=== PATIENT | female | born 1960 | race African-American/Black ===

== ENCOUNTER 2016-09-15 08:39 | Emergency (ER) | payer SELFPAY ==
[2016-09-15] MEDS ORDERED: ASPIRIN 81 MG TABLET, CHEWABLE PO ONE (08:52)
[2016-09-15 09:48] LABS: ABSOLUTE BASOPHILS # (AUTO) 0.1 10^3/uL (0.0-0.2); ABSOLUTE EOSINOPHILS # (AUTO) 0.2 10^3/uL (0.0-0.6); ABSOLUTE LYMPHOCYTES (AUTO) 1.7 10^3/uL (0.5-4.7); ABSOLUTE MONOCYTES (AUTO) 0.4 10^3/uL (0.1-1.4); ABSOLUTE NEUT (AUTO) 4.6 10^3/uL (1.7-8.2); BASOPHILS % (AUTO) 0.8 % (0-2); EOSINOPHILS % (AUTO) 3.5 % (0-6); HEMATOCRIT 41.7 % (36.0-47.0); HEMOGLOBIN 13.9 g/dL (12.0-15.5); MEAN CORPUSCULAR HEMOGLOBIN 27.7 pg (27.0-33.4); MEAN CORPUSCULAR HGB CONC 33.4 g/dL (32.0-36.0); MEAN CORPUSCULAR VOLUME 83 fl (80-97); MONOCYTES % (AUTO) 5.1 % (3-13); RED BLOOD COUNT 5.03 10^6/uL (3.72-5.28); RED CELL DISTRIBUTION WIDTH 15.7 % (11.5-14.0); SEGMENTED NEUTROPHILS % (AUTO) 66.6 % (42-78); WHITE BLOOD COUNT 6.9 10^3/uL (4.0-10.5)
--- NOTE | 2016-09-15 10:02 | ER Document Report ---
ED Cardiac - General Chief Complaint: Chest Pain Stated Complaint: CHEST PAIN Notes: The patient is a 55-year-old female, past medical history diabetes, hypertension , hyperlipidemia, presents with 2 days of left-sided sternal pain, worse when she palpates the area. She has had this in the past and was diagnosed with chest wall pain after a negative stress test. She took a baby aspirin yesterday and used heating pads with some relief of her symptoms. She denies nausea, vomiting, numbness, tingling, shortness of breath, cough, fevers, rash, back pain, leg swelling or recent heavy lifting. TRAVEL OUTSIDE OF THE [place] IN LAST 30 DAYS: No - Related Data Allergies/Adverse Reactions: No Known Allergies Allergy (Unverified 09/15/16 08:49) Past Medical History - General Information source: Patient - Social History Smoking Status: Never Smoker Chew tobacco use (# tins/day): No Frequency of alcohol use: None Drug Abuse: None Family History: Arthritis, CAD, CVA, DM, Hyperlipidemia, Hypertension, Malignancy Patient has suicidal ideation: No Patient has homicidal ideation: No - Past Medical History Cardiac Medical History: Reports: Hx Hypercholesterolemia, Hx Hypertension Endocrine Medical History: Reports: Hx Diabetes Mellitus Type 2 Past Surgical History: Reports: Hx Section Review of Systems - Review of Systems Notes: REVIEW OF SYSTEMS: CONSTITUTIONAL: Denies fever, chills, or sweats. Denies recent illness. EENT: Denies eye, ear, throat, or mouth pain or symptoms. Denies nasal or sinus congestion. CARDIOVASCULAR: +chest pain. Denies syncope. RESPIRATORY: Denies cough, cold, or chest congestion. Denies shortness of breath, difficulty breathing, or wheezing. GASTROINTESTINAL: Denies abdominal pain. Denies nausea, vomiting, or diarrhea. Denies constipation. GENITOURINARY: Denies difficulty urinating, painful urination, burning, frequency, or blood in urine. MUSCULOSKELETAL: Denies neck or back pain or joint pain or swelling. SKIN: Denies rash or skin lesions. HEMATOLOGIC: Denies easy bruising or bleeding. LYMPHATIC: Denies swollen, enlarged glands. NEUROLOGICAL: Denies altered mental status or loss of consciousness. Denies headache. Denies weakness or paralysis or loss of use of either side. Denies problems with gait or speech. Denies sensory or motor loss. PSYCHIATRIC: Denies anxiety or stress or depression. ALL OTHER SYSTEMS REVIEWED AND NEGATIVE. Physical Exam - Vital signs Vitals: Resp 19 09/15/16 09:34 - Notes Notes: PHYSICAL EXAMINATION: GENERAL: Well-appearing, well-nourished and in no acute distress. HEAD: Atraumatic, normocephalic. EYES: Pupils equal round and reactive to light, extraocular movements intact, sclera anicteric, conjunctiva are normal. ENT: nares patent, oropharynx clear without exudates. Moist mucous membranes. NECK: Normal range of motion, supple without lymphadenopathy LUNGS: Breath sounds clear to auscultation bilaterally and equal. No wheezes rales or rhonchi. HEART: Regular rate and rhythm without murmurs. Tender over left anterior sternocostal border (ribs 6-7). ABDOMEN: Soft, nontender, normoactive bowel sounds. No guarding, no rebound. No masses appreciated. EXTREMITIES: Normal range of motion, no pitting or edema. No cyanosis. NEUROLOGICAL: Cranial nerves grossly intact. Normal speech, normal gait. Normal sensory, motor, and reflex exams. PSYCH: Normal mood, normal affect. SKIN: Warm, Dry, normal turgor, no rashes or lesions noted. Course - Re-evaluation Re-evalutation: Pt's HEART score is 3. Symptoms atypical for PE and aortic dissection at this time. Since patient's pain is ongoing for 2 days, will only need 1 set of troponins. Pain is reproducible on palpation. Will have her follow-up with the security sales manager for further evaluation of her chest pain, including stress test. - Vital Signs Vital signs: Temp Pulse Resp BP Pulse Ox 18 122/66 95 09/15/16 10:01 09/15/16 10:01 09/15/16 10:01 - Laboratory Result Diagrams: 09/15/16 09:33 09/15/16 09:33 Laboratory results interpreted by me: 09/15/16 09/15/16 09:33 09:33 RDW 15.7 H Sodium 145.7 H Potassium 3.4 L Carbon Dioxide 31 H Est GFR (Non-Af Amer) 58 L - Diagnostic Test Radiology reviewed: Image reviewed, Reports reviewed - EKG Interpretation by Me EKG shows normal: Sinus rhythm, Intervals, QRS Complexes, ST-T Waves Ruffin/QRS: Left axis deviation Discharge - Discharge Clinical Impression: Chest pain Qualifiers: Chest pain type: unspecified Qualified Code(s): R07.9 - Chest pain, unspecified Condition: Good Disposition: HOME, SELF-CARE Additional Instructions: He must follow-up with your primary care physician and security sales manager in 1-2 days for further evaluation of your chest pain. CHEST PAIN OF UNCLEAR CAUSE: The exact cause of your chest pain isn't clear. Fortunately, there is no evidence of a dangerous medical condition. Further testing may be required to find the source of the pain. Most often, we find that this pain is coming from the chest wall -- the muscles or rib joints in the chest. But chest pain can come from the lung and lung lining, the esophagus, the heart valves or heart lining, and even the stomach or gallbladder. Rest. Eat lightly until the pain is gone. We may prescribe medicine for pain and inflammation. You should call the physician immediately if the pain radiates to the shoulder, jaw or arms; if you start to run a fever or develop a cough; or if you develop shortness of breath, or other new or alarming symptoms. NORMAL EXAM AND WORKUP: At this time, your examination and workup show no significant abnormality. No significant abnormal physical findings were noted. All laboratory, EKG, and imaging (x-ray, CT scans, ultrasound) studies that were ordered show no significant abnormality. Although your examination and all studies that were ordered showed no significant abnormal finding, there are no examinations and no studies that are 100% accurate. There is always the possibility that some abnormality could exist and not be detected with physical examination or within the limits and capabilities of laboratory and other studies. You should return or follow up as you were instructed on your visit today for further evaluation if your symptoms do not resolve. CHEST WALL PAIN: Your chest pain may be coming from the chest wall. This is often caused by straining the muscles or joints in the chest during physical activity, direct trauma, coughing, or vigorous vomiting. Persons with arthritis are especially prone to this type of pain, due to inflammation of the cartilage joints near the breast bone. Occasionally, no cause can be found. Rest from strenuous physical activity. This kind of chest pain is usually made worse by movement of the chest. Depending on the symptoms, we may prescribe medicine for pain, muscle relaxation, and antiinflammatory effects. If the pain is new, and seems to be due to muscle strain, cold packs can help. Otherwise, apply gentle warmth to the painful area for 15 minutes every hour or two. You should call contact the doctor immediately if things change. Further evaluation is needed if you develop a fever or cough, if the nature of the pain changes, or if you become short of breath. ASPIRIN: Aspirin has been shown to have a beneficial effect on blood circulation by reducing the clotting effect of platelets in the blood. These beneficial effects can be achieved by taking just a single baby (81 mg) aspirin a day. It is recommended that any person over the age of forty take a single baby aspirin every day for heart and brain circulation, unless you are allergic to aspirin or have some significant bleeding disorder. It is strongly recommended that people who have proven cardiac or blood circulation disturbances should take a baby aspirin every day. FOLLOW-UP CARE: If you have been referred to a physician for follow-up care, call the physician s office for an appointment as you were instructed or within the next two days. If you experience worsening or a significant change in your symptoms, notify the physician immediately or return to the Emergency Department at any time for re-evaluation. Forms: Elevated Blood Pressure Referrals: [facility] [Primary Care Provider] - Follow up as needed
[2016-09-15 10:10] LABS: ALANINE AMINOTRANSFERASE 38 U/L (9-52); ALBUMIN 4.4 g/dL (3.5-5.0); ALKALINE PHOSPHATASE 81 U/L (38-126); ANION GAP 12 (5-19); ASPARTATE AMINO TRANSFERASE 27 U/L (14-36); BILIRUBIN,TOTAL 0.4 mg/dL (0.2-1.3); BLOOD UREA NITROGEN 16 mg/dL (7-20); CALCIUM 9.6 mg/dL (8.4-10.2); CARBON DIOXIDE 31 mmol/L (22-30); CHLORIDE 103 mmol/L (98-107); CREATINE KINASE 109 U/L (30-135); CREATININE RESULT 0.99 mg/dL (0.52-1.25); GLUCOSE 85 mg/dL (75-110); POTASSIUM 3.4 mmol/L (3.6-5.0); SODIUM 145.7 mmol/L (137-145); TOTAL PROTEIN 7.7 g/dL (6.3-8.2)
[2016-09-15 10:20] LABS: CREATINE KINASE MB 0.68 ng/mL (<4.55)
--- NOTE | 2016-09-15 10:20 | EKG REPORT ---
SEVERITY:- ABNORMAL ECG - SINUS RHYTHM LEFT AXIS DEVIATION LEFT VENTRICULAR HYPERTROPHY : Confirmed by: Casper Del Castillo 15-Sep-2016 10:19:10
[2016-09-15 10:22] LABS: TROPONIN I < 0.012 ng/mL
[2016-09-15] MEDS ORDERED: POTASSIUM CHLORIDE 10 MEQ TABLET.SA PO ONE (10:34)
[2016-09-15 11:11] VITALS: BP 120/77
== END 2016-09-15 11:11 | disposition home or self-care (01) ==
LOC: ER 08:39
DX: R07.9 Chest pain, unspecified (principal); E11.9 Type 2 diabetes mellitus without complications; I10 Essential (primary) hypertension; Z82.49 Family history of ischemic heart disease and other diseases of the circulatory system
CPT/HCPCS: 36415; 71010; 80053; 82550; 82553; 84484; 85025; 93005; 93010; 99285

== ENCOUNTER → 2016-09-20 | Outpatient (CLI) | payer OTHER | LOC: OD 11:43 | DX: E11.9 Type 2 diabetes mellitus without complications (principal) | CPT/HCPCS: 36415; 83036 ==

== ENCOUNTER 2017-01-04 15:07 | Emergency (ER) | payer SELFPAY ==
[2017-01-04] MEDS ORDERED: KETOROLAC TROMETHAMINE 60 MG/2 ML SDV IM ONE (16:00)
--- NOTE | 2017-01-04 16:06 | ER Document Report ---
ED Neck/Back Problem - General Chief Complaint: Back Pain Stated Complaint: BACK PAIN Mode of Arrival: Ambulatory Information source: Patient TRAVEL OUTSIDE OF THE [place] IN LAST 30 DAYS: No - HPI Patient complains to provider of: Pain Onset: Last week Notes: Patient arrives with complaints of low back pain and intermittent headaches. Patient states that she was bringing her mother here to be evaluated and thought she would be evaluated as well since her back was hurting her. She has a history of intermittent low back pain. She had x-rays in 2016 showing degenerative changes of the lumbar spine. She states the last few days been having increasing low back pain radiating down the left leg. She denies any traumatic injuries or falls. She is on no blood thinners per [place] denies fevers. She denies any bowel or bladder dysfunction. She denies IV drug use. She has a history of diabetes. Pain is worse with movement specifically when she moves her left leg. States that she been having intermittent headaches for the last week or so. She denies any significant headache at this time. Again she denies any numbness, tingling, weakness, blurred or loss vision. No fevers. No neck. - Related Data Allergies/Adverse Reactions: No Known Allergies Allergy (Verified 01/04/17 15:22) Past Medical History - Social History Smoking Status: Unknown if Ever Smoked Family History: Arthritis, CAD, CVA, DM, Hyperlipidemia, Hypertension, Malignancy Patient has suicidal ideation: No Patient has homicidal ideation: No - Past Medical History Cardiac Medical History: Reports: Hx Hypercholesterolemia, Hx Hypertension Endocrine Medical History: Reports: Hx Diabetes Mellitus Type 2 Renal/ Medical History: Denies: Hx Peritoneal Dialysis Past Surgical History: Reports: Hx Section Review of Systems - Review of Systems -: Yes All other systems reviewed and negative Physical Exam - Vital signs Vitals: Temp Pulse Resp BP Pulse Ox 98.4 F 93 16 155/79 H 97 01/04/17 15:22 01/04/17 15:22 01/04/17 15:22 01/04/17 15:22 01/04/17 15:22 - Notes Notes: GENERAL: alert, cooperative, nontoxic, no distress. HEAD: normocephalic, atraumatic EYES: conjunctiva pink without discharge, no external redness or swelling. EARS: no external swelling, no external redness NOSE: atraumatic, no external swelling MOUTH/THROAT: mucous membranes moist and pink, posterior pharynx without erythema, swelling, exudate. No trismus or drooling. NECK: soft, supple, full range of motion, no meningismus. CHEST: no distress, lungs clear and equal throughout. No wheezing, rales, rhonchi. CARDIAC: regular rate and rhythm, no murmur, normal capillary refill, normal pulses. No peripheral edema noted. ABDOMEN: soft, nontender, no pusatile mass. BACK: Mild tenderness to palpation to the left sciatic notch. No midline tenderness to posterior crepitus to palpation of the lumbar spine. No rash. EXTREMITIES: full range of motion of all extremities. No redness, no swelling. NEURO: alert and oriented 3, no focal deficits, full range of motion of all extremities. 5 out of 5 flexion and extension of the lower extremities bilaterally. Patellar and Achilles deep tendon reflexes are +2 bilaterally. Normal sensation with no saddle anesthesia. PYSCH: appropriate mood, affect. Patient is cooperative. SKIN: pink, warm, dry, no rash. Course - Re-evaluation Re-evalutation: 01/04/17 16:03 Patient is nontoxic. Stable vitals. She's had nontraumatic low back pain rating down the left leg consistent with sciatica. She's had x-rays in the past showing degenerative changes of the lumbar spine. She has no abdominal complaints. She's had intermittent headaches for the last week, but denies any significant headache currently. She has a completely benign exam with no signs of cauda equina or epidural abscess or bleed. The patient will be given a shot of Toradol here in the emergency department. Due to her history of diabetes, I will place her on an NSAID as well as some tramadol to help with her pain in hopes of decreasing inflammation and improving her sciatica symptoms. She was instructed to follow-up with her primary care doctor at the next available appointment for reevaluation. She should follow-up sooner for increased pain, fever, difficulty controlling her bowels or bladder, or for any further concerns. The patient is noted to have elevated blood pressure during today's emergency department visit. The patient was informed of this finding. The patient was instructed that this may be related to pre-hypertension and requires further evaluation with a primary care provider. The patient has no hypertensive symptoms at this time. The patient's emergency department workup and current diagnosis were explained to the patient and or family. Follow-up instructions were provided. Medications if prescribed were discussed. Instructions for when to return to the emergency department including specific worrisome symptoms were discussed with the patient and/or family. - Vital Signs Vital signs: Temp Pulse Resp BP Pulse Ox 98.4 F 93 16 155/79 H 97 01/04/17 15:22 01/04/17 15:22 01/04/17 15:22 01/04/17 15:22 01/04/17 15:22 Discharge - Discharge Clinical Impression: Sciatica Qualifiers: Laterality: left Qualified Code(s): M54.32 - Sciatica, left side Condition: Stable Disposition: HOME, SELF-CARE Instructions: Low Back Pain ([facility]), Sciatica ([facility]) Additional Instructions: Take medications as prescribed. Stay active. Follow-up with your family doctor at the next available appointment for reevaluation. Follow up sooner for increased pain, fever, numbness, tingling, weakness, difficulty controlling her bowels or bladder, or any further concerns. Your blood pressure was elevated during today's visit. Have this rechecked with your doctor. The medication you were prescribed today may cause drowsiness. Do not drive or operate heavy machinery while taking this medication. Prescriptions: Diclofenac Sodium [Voltaren] 75 mg PO BID #20 tablet. Tramadol HCl [Ultram] 50 mg PO TID PRN #10 tablet PRN Reason:
[2017-01-04 16:54] VITALS: BP 152/87
== END 2017-01-04 16:54 | disposition home or self-care (01) ==
LOC: ER 15:07
DX: M54.32 Sciatica, left side (principal); M54.9 Dorsalgia, unspecified; R51 Headache; M54.5 Low back pain; E11.9 Type 2 diabetes mellitus without complications
CPT/HCPCS: 99283; 96372; J1885

== ENCOUNTER → 2017-02-13 | Outpatient (CLI) | payer OTHER ==
--- NOTE | 2017-02-13 13:51 | RADIOLOGY REPORT (SQ) ---
EXAM DESCRIPTION: HIP RIGHT AP/LATERAL COMPLETED DATE/TIME: 02/13/2017 1:10 pm REASON FOR STUDY: RIGHT HIP PAIN (M25.551) M25.551 PAIN IN RIGHT HIP M25.561 PAIN IN RIGHT KNEE COMPARISON: None. NUMBER OF VIEWS: Two views. TECHNIQUE: AP pelvis and additional frog-leg view of the right hip. LIMITATIONS: None. FINDINGS: MINERALIZATION: Normal. RIGHT HIP: No fracture or dislocation. No worrisome bone lesions. LEFT HIP: No fracture or dislocation. No worrisome bone lesions. PUBIS AND ISCHIUM: No fracture. PELVIS: No fracture. SACRUM: No fracture or dislocation. No worrisome bone lesions. LOWER LUMBAR SPINE: No fracture or dislocation. No worrisome bone lesions. No significant disc disea se. SOFT TISSUES: No findings. OTHER: No other significant finding. IMPRESSION: NEGATIVE STUDY OF THE RIGHT HIP. NO RADIOGRAPHIC EVIDENCE OF ACUTE INJURY. TECHNICAL DOCUMENTATION: JOB ID: [id number] [employer]- All Rights Reserved
--- NOTE | 2017-02-13 13:52 | RADIOLOGY REPORT (SQ) ---
EXAM DESCRIPTION: KNEE RIGHT 4 VIEWS COMPLETED DATE/TIME: 02/13/2017 1:10 pm REASON FOR STUDY: RIGHT KNEE PAIN (M25.561) M25.551 PAIN IN RIGHT HIP M25.561 PAIN IN RIGHT KNEE COMPARISON: None. NUMBER OF VIEWS: Four views. TECHNIQUE: AP, lateral, and both oblique radiographic images acquired of the right knee. LIMITATIONS: None. FINDINGS: MINERALIZATION: Normal. BONES: No acute fracture or dislocation. No worrisome bone lesions. JOINT: No effusion. SOFT TISSUES: No soft tissue swelling. No radio-opaque foreign body. OTHER: No other significant finding. IMPRESSION: NEGATIVE STUDY OF THE RIGHT KNEE. NO RADIOGRAPHIC EVIDENCE OF ACUTE INJURY. TECHNICAL DOCUMENTATION: JOB ID: [id number] [employer]- All Rights Reserved
== END ==
LOC: RAD 12:34
DX: M25.551 Pain in right hip (principal); M25.561 Pain in right knee; E11.9 Type 2 diabetes mellitus without complications
CPT/HCPCS: 36415; 83036

== ENCOUNTER → 2017-06-05 | Outpatient (CLI) | payer OTHER ==
--- NOTE | 2017-06-06 09:25 | RADIOLOGY REPORT (SQ) ---
EXAM DESCRIPTION: MRI CERVICAL SPINE WITHOUT COMPLETED DATE/TIME: 06/05/2017 5:48 pm REASON FOR STUDY: NUMBNESS IN RIGHT HAND R20.2 PARESTHESIA OF SKIN COMPARISON: None. TECHNIQUE: Sagittal and Axial imaging includes T1, T2, STIR and gradient echo sequences. LIMITATIONS: None. FINDINGS: ALIGNMENT: Normal. VERTEBRAE: Intact. BONE MARROW: Red marrow conversion, could be seen in anemia or heavy smoking DISCS: Diffuse decreased T2 weighted intervertebral disc signal. No disc space loss of height. HARDWARE: None in the spine. CORD AND BASE OF BRAIN: Normal in size and signal intensity. SOFT TISSUES: No soft tissue masses. C1-C2: No significant spinal stenosis. C2-C3: No significant spinal stenosis or exit foraminal stenosis. C3-C4: Minimal posterior disc bulging. No significant spinal stenosis or exit foraminal stenosis. C4-C5: Mild central and left paracentral posterior disc bulging. No significant spinal stenosis or e xit foraminal stenosis. C5-C6: Mild diffuse posterior disc bulging. No significant spinal stenosis or exit foraminal stenosi s. C6-C7: Minimal posterior disc bulging. No significant spinal stenosis or exit foraminal stenosis. C7-T1: No significant spinal stenosis or exit foraminal stenosis. UPPER THORACIC: Incompletely imaged. No significant spinal stenosis or exit foraminal stenosis. OTHER: No other significant finding. IMPRESSION: Very mild degenerative disc changes. No high-grade central or foraminal encroachment. Decreased vertebral body marrow fat content. Question red marrow conversion as above. TECHNICAL DOCUMENTATION: JOB ID: [id number] [employer]- All Rights Reserved
== END ==
LOC: RAD 17:09
DX: R20.2 Paresthesia of skin (principal)
CPT/HCPCS: 72141

== ENCOUNTER → 2017-06-18 | Outpatient (CLI) | payer OTHER | LOC: CCC 10:20 | DX: E11.8 Type 2 diabetes mellitus with unspecified complications (principal) | CPT/HCPCS: 36415; 83036 ==

== ENCOUNTER 2017-09-20 07:21 | Emergency (ER) | payer OTHER ==
[2017-09-20] MEDS ORDERED: KETOROLAC TROMETHAMINE 60 MG/2 ML SDV IM ONE (08:35)
--- NOTE | 2017-09-20 09:38 | ER Document Report ---
ED Medical Screen (RME) - General Chief Complaint: Foot Pain Stated Complaint: FOOT PAIN Time Seen by Provider: 09/20/17 08:30 TRAVEL OUTSIDE OF THE [place] IN LAST 30 DAYS: No - HPI Notes: This provider performed a quick evaluation of a 56-year-old female with complaints of left foot pain that started approximately 1 day ago. Denies head trauma or change in loc. pain is 5/10,throbbing. unable to bear full weight. nothing makes better, ambulation makes worse. no otc medications tried. pain is progressive and constant. pt has not tried icing or elevating foot. denies any n /t in foot. denies any other area of injury. Denies any chest pain, shortness of breath, nausea, vomiting, diarrhea, blurred vision, double vision, loss of vision, abdominal pain, hematuria, dysuria. I have greeted and performed a rapid initial assessment of this patient. A comprehensive ED assessment and evaluation of the patient, analysis of test results and completion of medical decision making process will be conducted by an additional ED providers. 09/20/17 09:37 09/20/17 09:37 - Related Data Allergies/Adverse Reactions: No Known Allergies Allergy (Verified 09/20/17 07:24) Past Medical History - Social History Frequency of alcohol use: None Drug Abuse: None - Past Medical History Cardiac Medical History: Reports: Hx Hypercholesterolemia, Hx Hypertension Endocrine Medical History: Reports: Hx Diabetes Mellitus Type 2 Renal/ Medical History: Denies: Hx Peritoneal Dialysis Past Surgical History: Reports: Hx Section Physical Exam - Vital signs Vitals: Temp Pulse Resp BP Pulse Ox 97.7 F 68 16 145/79 H 97 09/20/17 07:31 09/20/17 07:31 09/20/17 07:31 09/20/17 07:31 09/20/17 07:31 Course - Vital Signs Vital signs: Temp Pulse Resp BP Pulse Ox 97.7 F 68 16 145/79 H 97 09/20/17 07:31 09/20/17 07:31 09/20/17 07:31 09/20/17 07:31 09/20/17 07:31
--- NOTE | 2017-09-20 10:03 | RADIOLOGY REPORT (SQ) ---
EXAM DESCRIPTION: FOOT LEFT COMPLETE COMPLETED DATE/TIME: 09/20/2017 9:08 am REASON FOR STUDY: left foot pain x 1 day, unsure of trauma. COMPARISON: None. NUMBER OF VIEWS: Three views. TECHNIQUE: AP, lateral and oblique radiographic images acquired of the left foot. LIMITATIONS: None. FINDINGS: MINERALIZATION: Normal. BONES: No acute fracture or dislocation. No worrisome bone lesions. Small plantar and dorsal calcan eal spurs JOINTS: No effusions. SOFT TISSUES: No soft tissue swelling. No foreign body. OTHER: No other significant finding. IMPRESSION: NEGATIVE STUDY OF THE LEFT FOOT. NO RADIOGRAPHIC EVIDENCE OF ACUTE INJURY. TECHNICAL DOCUMENTATION: JOB ID: [id number] [employer]- All Rights Reserved
--- NOTE | 2017-09-20 10:38 | ER Document Report ---
ED Extremity Problem, Lower - General Chief Complaint: Foot Pain Stated Complaint: FOOT PAIN Time Seen by Provider: 09/20/17 08:30 Mode of Arrival: Ambulatory Information source: Patient Notes: 56-year-old female presents to ED for complaint of left foot pain since yesterday when she woke up that patient denies any injuries. TRAVEL OUTSIDE OF THE [place] IN LAST 30 DAYS: No - HPI Location: Foot - Left Occurred: Yesterday Where: Home, Indoors Onset/Duration: Gradual Quality of pain: Sharp - Feels like is tearing apart Severity: Moderate Pain Level: 3 Recent injury: No Associated symptoms: Painful ambulation Exacerbated by: Movement, Walking Relieved by: Nothing - Related Data Allergies/Adverse Reactions: No Known Allergies Allergy (Verified 09/20/17 07:24) Past Medical History - General Information source: Patient - Social History Smoking Status: Never Smoker Cigarette use (# per day): No Chew tobacco use (# tins/day): No Smoking Education Provided: No Frequency of alcohol use: None Drug Abuse: None Lives with: Family Family History: Arthritis, CAD, CVA, DM, Hyperlipidemia, Hypertension, Malignancy. denies: COPD Patient has suicidal ideation: No Patient has homicidal ideation: No - Past Medical History Cardiac Medical History: Reports: Hx Hypercholesterolemia, Hx Hypertension Denies: Hx Atrial Fibrillation, Hx Congestive Heart Failure, Hx Coronary Artery Disease, Hx DVT, Hx Heart Attack, Hx Peripheral Vascular Disease, Hx Pulmonary Embolism, Hx Heart Murmur Pulmonary Medical History: Reports: None EENT Medical History: Reports: None Neurological Medical History: Reports: None Endocrine Medical History: Reports: Hx Diabetes Mellitus Type 2 Renal/ Medical History: Reports: None Malignancy Medical History: Reports: None GI Medical History: Reports: None Musculoskeltal Medical History: Reports Hx Arthritis Skin Medical History: Reports None Psychiatric Medical History: Reports: None Traumatic Medical History: Reports: None Infectious Medical History: Reports: None Past Surgical History: Reports: Hx Section Review of Systems - Review of Systems Constitutional: No symptoms reported EENT: No symptoms reported Cardiovascular: No symptoms reported Respiratory: No symptoms reported Gastrointestinal: No symptoms reported Genitourinary: No symptoms reported Female Genitourinary: No symptoms reported Musculoskeletal: Other - Pain left foot to the small toe side metatarsals Skin: No symptoms reported Hematologic/Lymphatic: No symptoms reported Neurological/Psychological: No symptoms reported -: Yes All other systems reviewed and negative Physical Exam - Vital signs Vitals: Temp Pulse Resp BP Pulse Ox 97.7 F 68 16 145/79 H 97 09/20/17 07:31 09/20/17 07:31 09/20/17 07:31 09/20/17 07:31 09/20/17 07:31 Interpretation: Normal - General General appearance: Appears well, Alert - HEENT Head: Normocephalic, Atraumatic Eyes: Normal Pupils: PERRL - Respiratory Respiratory status: No respiratory distress Chest status: Nontender Breath sounds: Normal Chest palpation: Normal - Cardiovascular Rhythm: Regular Heart sounds: Normal auscultation Murmur: No - Abdominal Inspection: Normal Distension: No distension Bowel sounds: Normal Tenderness: Nontender Organomegaly: No organomegaly - Back Back: Normal, Nontender - Extremities General upper extremity: Normal inspection, Nontender, Normal color, Normal ROM , Normal temperature General lower extremity: Normal inspection, Normal color, Normal weight bearing. No: Julien's sign Foot: Tender, Metatarsal compress. pain - Left, No evidence of FB. No: Abrasion , Deformity, Ecchymosis, Edema - left, Instability, Laceration, Nail injury, Navicular tenderness, Puncture wound, Tender 5th metatarsal, Unable to bear weight - In full ambulation - Neurological Neuro grossly intact: Yes Cognition: Normal Orientation: AAOx4 [place] Coma Scale Eye Opening: Spontaneous [place] Coma Scale Verbal: Oriented [place] Coma Scale Motor: Obeys Commands [place] Coma Scale Total: 15 Speech: Normal Motor strength normal: LUE, RUE, LLE, RLE Sensory: Normal - Psychological Associated symptoms: Normal affect, Normal mood - Skin Skin Temperature: Warm Skin Moisture: Dry Skin Color: Normal Course - Re-evaluation Re-evalutation: 09/20/17 10:42 No acute injuries no broken bones or radiological injuries noted on the x-ray. X-ray discussed with patient and a copy of the x-ray given to patient and discharged home. - Vital Signs Vital signs: Temp Pulse Resp BP Pulse Ox 97.6 F 64 18 135/80 H 96 09/20/17 10:45 09/20/17 10:45 09/20/17 10:45 09/20/17 10:45 09/20/17 10:45 - Diagnostic Test Radiology reviewed: Image reviewed, Reports reviewed Discharge - Discharge Clinical Impression: Foot pain, left HTN (hypertension) Qualifiers: Hypertension type: unspecified Qualified Code(s): I10 - Essential (primary) hypertension Condition: Stable Disposition: HOME, SELF-CARE Additional Instructions: You were seen today for pain in your left foot. Her x-ray shows no acute changes. You deny any injury you to state that the pain just started yesterday when he woke up. Epsom Salt Soaks Soak the wound area in a container of warm epsom salt water. If you can't get the wound area into a bucket or waller, use a folded towel soaked in the epsom salt solution and apply to the area. Use clean hot tap water (about the temperature of a very warm bath), mixing in about one (1) teaspoon for every pint of water. Two gallon --> 16 teaspoons Epsom Salts One gallon --> 8 teaspoons Epsom Salts Two quarts --> 4 teaspoons Epsom Salts One quart --> 2 teaspoons Epsom Salts Soak the wound for about 20 minutes while gently moving it around in the water. Repeat this four (4) times a day. Post-Op Shoe You are to use a "post-op shoe," sometimes also called a "bunnion shoe." This shoe helps protect minor fractures, sprains, and other injuries of the toes or foot. You may remove the shoe for bathing. Walk carefully. If you're feeling pain, put less weight on the foot, take smaller steps, or use a cane. If you have a new injury, you may need to use crutches for the first couple of days. If pain still prevents walking after a few days, contact the doctor. If there's unexpected pain in your foot, if blisters or sore spots develop , or if the shoe is physically coming apart, return at once. Remember that you' re welcome to come in at any time to have the fit of the shoe checked and adjusted. USE OF CRUTCHES: The doctor has recommended that you not bear weight at this time. You will need to use crutches. Adjust the crutches so the tops come to about two inches under the armpit while you are standing upright. Use your hands -- not your armpits -- to support your weight. To get into a chair, support yourself with one crutch on the injured side. Hold the chair with the other hand, then lower yourself while putting all your weight on the good leg. Going up stairs is `good leg up, step up, then bring up crutches and bad leg.' Down stairs is `bad leg and crutches down, then bring good leg down.' If you develop numbness or swelling in an arm or hand, you are using the crutches incorrectly. Return if you are having any problems with the crutches. ICE & ELEVATION: Apply ice packs frequently against the painful area. Many different schedules are recommended, such as "20 minutes on, 20 minutes off" or "one hour ice, two hours rest." If you need to work, you may need to go longer between ice treatments. You should plan to have the area ice packed AT LEAST one- fourth of the time. The ice should be applied over the wrap, tape, or splint, or over a layer of cloth -- not directly against the skin. Some ice bags have a built-in cloth and can be put directly on the skin. Your injured part should be elevated as much as possible over the next 48 hours. Try to keep the injury above the level of the heart. Avoid use of the injured area. Elevation and rest will decrease the swelling. USE OF [id number] IBUPROFEN: Ibuprofen (Advil, Nuprin, Medipren, Motrin IB) is a medication for fever and pain control. In addition, it has anti- inflammatory effects which may be beneficial, especially in the treatment of injuries. It's best to take ibuprofen with food. Persons with ulcer disease or allergy to aspirin should notify their physician of this before taking ibuprofen. Ibuprofen can be given every four to six hours, for a total of four doses daily. Age Pain or fever dose Antiinflammatory dose 6-8 yr 200 mg (1 tab) 200 mg (1 tab) 9-11 yr 200 mg (1 tab) 200-400 mg (1-2 tab) 11-14 yr 200-400 mg (1-2 tab) 400 mg (2 tab) 15-adult 400 mg (2 tab) 600 mg (3 tab) FOLLOW-UP CARE: If you have been referred to a physician for follow-up care, call the physician s office for an appointment as you were instructed or within the next two days. If you experience worsening or a significant change in your symptoms, notify the physician immediately or return to the Emergency Department at any time for re-evaluation. Prescriptions: Ibuprofen 600 mg PO Q6HP PRN #20 tablet PRN Reason: Forms: Elevated Blood Pressure Referrals: MÓNICA GRAVES DPM [ACTIVE STAFF] - Follow up as needed
[2017-09-20 10:50] VITALS: BP 135/80
== END 2017-09-20 10:51 | disposition home or self-care (01) ==
LOC: ER 07:21
DX: M79.672 Pain in left foot (principal); I10 Essential (primary) hypertension; E78.00 Pure hypercholesterolemia, unspecified; E11.9 Type 2 diabetes mellitus without complications
CPT/HCPCS: 99283; 96372; 73630; J1885

== ENCOUNTER → 2017-10-23 | Outpatient (CLI) | payer OTHER ==
[2017-10-23 11:38] LABS: ABSOLUTE EOSINOPHILS # (AUTO) 0.3 10^3/uL (0.0-0.6); ABSOLUTE LYMPHOCYTES (AUTO) 1.6 10^3/uL (0.5-4.7); ABSOLUTE MONOCYTES (AUTO) 0.3 10^3/uL (0.1-1.4); ABSOLUTE NEUT (AUTO) 4.2 10^3/uL (1.7-8.2); BASOPHILS % (AUTO) 0.7 % (0-2); EOSINOPHILS % (AUTO) 4.1 % (0-6); HEMATOCRIT 40.7 % (36.0-47.0); HEMOGLOBIN 13.6 g/dL (12.0-15.5); LYMPHOCYTES % (AUTO) 25.5 % (13-45); MEAN CORPUSCULAR HEMOGLOBIN 28.3 pg (27.0-33.4); MEAN CORPUSCULAR HGB CONC 33.6 g/dL (32.0-36.0); MEAN CORPUSCULAR VOLUME 84 fl (80-97); MONOCYTES % (AUTO) 5.2 % (3-13); PLATELET COUNT 215 10^3/uL (150-450); RED BLOOD COUNT 4.82 10^6/uL (3.72-5.28); RED CELL DISTRIBUTION WIDTH 15.3 % (11.5-14.0); SEGMENTED NEUTROPHILS % (AUTO) 64.5 % (42-78); TOTAL CELLS COUNTED % (AUTO) 100 %; WHITE BLOOD COUNT 6.5 10^3/uL (4.0-10.5)
[2017-10-23 11:58] LABS: ALANINE AMINOTRANSFERASE 42 U/L (9-52); ALBUMIN 4.3 g/dL (3.5-5.0); ALKALINE PHOSPHATASE 91 U/L (38-126); ANION GAP 8 (5-19); ASPARTATE AMINO TRANSFERASE 32 U/L (14-36); BILIRUBIN,DIRECT 0.4 mg/dL (0.0-0.4); BILIRUBIN,TOTAL 0.5 mg/dL (0.2-1.3); BLOOD UREA NITROGEN 16 mg/dL (7-20); C-REACTIVE PROTEIN 14.1 mg/L (<10.0); CALCIUM 9.7 mg/dL (8.4-10.2); CARBON DIOXIDE 35 mmol/L (22-30); CHLORIDE 103 mmol/L (98-107); CHOLESTEROL 121.37 mg/dL (0-200); GLUCOSE 92 mg/dL (75-110); POTASSIUM 3.7 mmol/L (3.6-5.0); TOTAL PROTEIN 7.4 g/dL (6.3-8.2); TRIGLYCERIDES 69 mg/dL (<150); URIC ACID 9.9 mg/dL (2.5-7.5)
[2017-10-23 12:07] LABS: DIRECT LDL 63 mg/dL (<100)
[2017-10-23 12:16] LABS: ERYTHROCYTE SEDIMENTATION RATE 18 mm/hr (0-30)
== END ==
LOC: OD 11:07
DX: M19.90 Unspecified osteoarthritis, unspecified site (principal); E11.8 Type 2 diabetes mellitus with unspecified complications; I10 Essential (primary) hypertension
CPT/HCPCS: 36415; 80053; 80061; 83036; 84550; 85025; 85652; 86140; 86430

== ENCOUNTER → 2018-04-05 | Outpatient (CLI) | payer OTHER ==
--- NOTE | 2018-04-05 10:33 | RADIOLOGY REPORT (SQ) ---
EXAM DESCRIPTION: CT LUMBAR SPINE WITHOUT COMPLETED DATE/TIME: 04/05/2018 10:08 am REASON FOR STUDY: SCIATICA COMPARISON: Radiographs 06/27/2016. TECHNIQUE: Axial images acquired through the lumbar spine without intravenous contrast. Images revi ewed with lung, soft tissue and bone windows. Reconstructed coronal and sagittal MPR images reviewed . All images stored on PACS. All CT scanners at this facility use dose modulation, iterative reconstruction, and/or weight based d osing when appropriate to reduce radiation dose to as low as reasonably achievable (ALARA). [facility]: Dose Right [facility]: CareDose [facility]: Dose Right [facility]: Teradose 4D [facility]: Smart Technologies LIMITATIONS: None. FINDINGS: SEGMENTATION: Normal. No transitional anatomy. ALIGNMENT: Normal. VERTEBRAL BODIES: No fractures. No dislocation. No acute findings. DISCS: Disc disease, most pronounced at L2-3 and L3-4. Here, there is height loss with disc bulging and associated osteophytes. Endplate sclerosis and irregularities and vacuum disc phenomenon particu larly at L3-4. Broad bulges are also noted at L4-5 and L5-S1. PEDICLES, TRANSVERSE PROCESSES: No fractures. No dislocation. No acute findings. FACETS, POSTERIOR ELEMENTS: Multilevel facet arthropathy without bulky overgrowth. Up to moderate sp inal stenosis at several levels. Foraminal encroachment is also noted. Degree of stenosis related t o soft tissue pathology would be better demonstrated by MRI. VISUALIZED RIBS: No fractures. SOFT TISSUES: Nonobstructive nephrolithiasis. No aortic aneurysm. Uterus looks enlarged, possibly f ibroids. OTHER: No other significant finding. IMPRESSION: 1. Multilevel spondylosis. Suspect up to moderate spinal stenosis. COMMENT: Quality ID # [id number]: Final reports with documentation of one or more dose reduction techniques (e.g., Automated exposure control, adjustment of the mA and/or kV according to patient size, use of iterative reconstruction technique) TECHNICAL DOCUMENTATION: JOB ID: [id number] Reading location - IP/workstation name: [email or web address]
== END ==
LOC: RAD 08:53
DX: M54.31 Sciatica, right side (principal); M54.32 Sciatica, left side; E11.9 Type 2 diabetes mellitus without complications; Z79.84 Long term (current) use of oral hypoglycemic drugs
CPT/HCPCS: 72131

== ENCOUNTER 2018-10-09 14:53 | Emergency (ER) | payer OTHER ==
[2018-10-09] MEDS ORDERED: LIDOCAINE 2% VISCOUS SOLN 20 ML UDCUP PO ONE (15:22)
[2018-10-09] MEDS ORDERED: METOCLOPRAMIDE HCL ORAL SOLN 10 MG/10 ML UDCUP PO ONE (15:22)
[2018-10-09] MEDS ORDERED: FAMOTIDINE INJ/PF 20 MG/2 ML SDV IV ONE (15:22)
[2018-10-09] MEDS ORDERED: ASPIRIN 81 MG TABLET, CHEWABLE PO ONE (15:22)
[2018-10-09] MEDS ORDERED: MAG HYDROX/AL HYDROX/SIMETH SUSP 30 ML UDCUP PO ONE (15:22)
--- NOTE | 2018-10-09 15:24 | ER Document Report ---
ED Medical Screen (RME) - General Chief Complaint: Chest Pain Stated Complaint: COUGH,CHEST PAIN,SHORT OF BREATH Time Seen by Provider: 10/09/18 15:16 Primary Care Provider: [facility] [Primary Care Provider] - Follow up as needed Mode of Arrival: Ambulatory Information source: Patient Notes: 57-year-old female presents emergency department complaints of chest pain that is been intermittent for the last 2 weeks. Patient does have a history of hypertension, diabetes, hyperlipidemia. Patient denies any history of coronary artery disease or family history of coronary artery disease. Patient describes the pain as a burning sensation in the left chest. She denies any alleviating or exacerbating factors. She denies any radiation of the pain. Patient has not taking any medication for relief of symptoms. Patient states that she gets similar pain every year around her birthday. I have greeted and performed a rapid initial assessment of this patient. A comprehensive ED assessment and evaluation of the patient, analysis of test results and completion of the medical decision making process will be conducted by additional ED providers. PHYSICAL EXAMINATION: GENERAL: Well-appearing, well-nourished and in no acute distress. HEAD: Atraumatic, normocephalic. EYES: Pupils equal round extraocular movements intact, conjunctiva are normal. ENT: Nares patent NECK: Normal range of motion LUNGS: No respiratory distress Musculoskeletal: Normal range of motion NEUROLOGICAL: Normal speech, normal gait. PSYCH: Normal mood, normal affect. TRAVEL OUTSIDE OF THE [place] IN LAST 30 DAYS: No - Related Data Allergies/Adverse Reactions: No Known Allergies Allergy (Verified 09/20/17 07:24) Past Medical History - Past Medical History Cardiac Medical History: Reports: Hx Hypercholesterolemia, Hx Hypertension Denies: Hx Atrial Fibrillation, Hx Congestive Heart Failure, Hx Coronary Artery Disease, Hx DVT, Hx Heart Attack, Hx Peripheral Vascular Disease, Hx Pulmonary Embolism, Hx Heart Murmur Endocrine Medical History: Reports: Hx Diabetes Mellitus Type 2 Renal/ Medical History: Denies: Hx Peritoneal Dialysis Musculoskeltal Medical History: Reports Hx Arthritis Past Surgical History: Reports: Hx Section Physical Exam - Vital signs Vitals: Temp Pulse Resp BP Pulse Ox 98.5 F 82 20 160/85 H 98 10/09/18 15:12 10/09/18 15:12 10/09/18 15:12 10/09/18 15:12 10/09/18 15:12 Course - Vital Signs Vital signs: Temp Pulse Resp BP Pulse Ox 98.5 F 82 20 160/85 H 98 10/09/18 15:12 10/09/18 15:12 10/09/18 15:12 10/09/18 15:12 10/09/18 15:12 Doctor's Discharge - Discharge Referrals: [facility] [Primary Care Provider] - Follow up as needed
--- NOTE | 2018-10-09 15:52 | RADIOLOGY REPORT (SQ) ---
EXAM DESCRIPTION: CHEST SINGLE VIEW COMPLETED DATE/TIME: 10/09/2018 3:38 pm REASON FOR STUDY: chest pain COMPARISON: 09/15/2016 EXAM PARAMETERS: NUMBER OF VIEWS: One view. TECHNIQUE: Single frontal radiographic view of the chest acquired. RADIATION DOSE: NA LIMITATIONS: None. FINDINGS: LUNGS AND PLEURA: No opacities, masses or pneumothorax. No pleural effusion. MEDIASTINUM AND HILAR STRUCTURES: No masses. Contour normal. HEART AND VASCULAR STRUCTURES: Cardiomegaly. BONES: No acute findings. HARDWARE: None in the chest. OTHER: No other significant finding. IMPRESSION: Cardiomegaly without acute abnormality of the lungs in AP projection. TECHNICAL DOCUMENTATION: JOB ID: [id number] [employer]- All Rights Reserved Reading location - IP/workstation name: [email or web address]
[2018-10-09 16:08] LABS: ABSOLUTE BASOPHILS # (AUTO) 0.1 10^3/uL (0.0-0.2); ABSOLUTE EOSINOPHILS # (AUTO) 0.4 10^3/uL (0.0-0.6); ABSOLUTE LYMPHOCYTES (AUTO) 1.7 10^3/uL (0.5-4.7); ABSOLUTE MONOCYTES (AUTO) 0.4 10^3/uL (0.1-1.4); ABSOLUTE NEUT (AUTO) 4.1 10^3/uL (1.7-8.2); BASOPHILS % (AUTO) 0.8 % (0-2); EOSINOPHILS % (AUTO) 5.6 % (0-6); HEMATOCRIT 40.1 % (36.0-47.0); HEMOGLOBIN 13.5 g/dL (12.0-15.5); LYMPHOCYTES % (AUTO) 26.3 % (13-45); MEAN CORPUSCULAR HEMOGLOBIN 28.7 pg (27.0-33.4); MEAN CORPUSCULAR HGB CONC 33.7 g/dL (32.0-36.0); MEAN CORPUSCULAR VOLUME 85 fl (80-97); MONOCYTES % (AUTO) 5.5 % (3-13); PLATELET COUNT 215 10^3/uL (150-450); RED BLOOD COUNT 4.71 10^6/uL (3.72-5.28); RED CELL DISTRIBUTION WIDTH 15.2 % (11.5-14.0); SEGMENTED NEUTROPHILS % (AUTO) 61.8 % (42-78); TOTAL CELLS COUNTED % (AUTO) 100 %; WHITE BLOOD COUNT 6.6 10^3/uL (4.0-10.5)
[2018-10-09 16:18] LABS: ALANINE AMINOTRANSFERASE 34 U/L (9-52); ALBUMIN 4.4 g/dL (3.5-5.0); ALKALINE PHOSPHATASE 105 U/L (38-126); ANION GAP 10 (5-19); ASPARTATE AMINO TRANSFERASE 25 U/L (14-36); BILIRUBIN,DIRECT 0.3 mg/dL (0.0-0.4); BILIRUBIN,TOTAL 0.4 mg/dL (0.2-1.3); BLOOD UREA NITROGEN 18 mg/dL (7-20); CALCIUM 9.3 mg/dL (8.4-10.2); CARBON DIOXIDE 29 mmol/L (22-30); CHLORIDE 105 mmol/L (98-107); GLUCOSE 250 mg/dL (75-110); POTASSIUM 4.1 mmol/L (3.6-5.0); SODIUM 143.5 mmol/L (137-145); TOTAL PROTEIN 7.4 g/dL (6.3-8.2)
--- NOTE | 2018-10-09 17:09 | ER Document Report ---
ED General - General Chief Complaint: Chest Pain Stated Complaint: COUGH,CHEST PAIN,SHORT OF BREATH Time Seen by Provider: 10/09/18 15:16 Primary Care Provider: [facility] [Primary Care Provider] - Follow up as needed Mode of Arrival: Ambulatory Information source: Patient TRAVEL OUTSIDE OF THE [place] IN LAST 30 DAYS: No - HPI Patient complains to provider of: Burning sensation in chest Onset: Other - 2 weeks Onset/Duration: Waxing and waning Quality of pain: Burning Severity: Moderate Pain Level: 3 Associated symptoms: Nonproductive cough Exacerbated by: Denies Relieved by: Denies Notes: 57-year-old female presents to the emergency room today complaining of burning sensation in her chest that has been waxing and waning over the past 2 weeks, she reports that she is using herbal tea for indigestion which gives her temporary relief of her symptoms, she reports a nonproductive cough, denies any nausea or vomiting, no fever or chills, denies diaphoresis or shortness of breath - Related Data Allergies/Adverse Reactions: No Known Allergies Allergy (Verified 09/20/17 07:24) Past Medical History - General Information source: Patient - Social History Smoking Status: Never Smoker Family History: Arthritis, CAD, CVA, DM, Hyperlipidemia, Hypertension, Malignancy. denies: COPD Patient has suicidal ideation: No Patient has homicidal ideation: No - Past Medical History Cardiac Medical History: Reports: Hx Hypercholesterolemia, Hx Hypertension Denies: Hx Atrial Fibrillation, Hx Congestive Heart Failure, Hx Coronary Artery Disease, Hx DVT, Hx Heart Attack, Hx Peripheral Vascular Disease, Hx Pulmonary Embolism, Hx Heart Murmur Endocrine Medical History: Reports: Hx Diabetes Mellitus Type 2 Renal/ Medical History: Denies: Hx Peritoneal Dialysis Musculoskeletal Medical History: Reports Hx Arthritis Past Surgical History: Reports: Hx Section Review of Systems - Review of Systems Constitutional: No symptoms reported EENT: No symptoms reported Cardiovascular: Chest pain Respiratory: No symptoms reported Gastrointestinal: See HPI Genitourinary: No symptoms reported Female Genitourinary: No symptoms reported Musculoskeletal: No symptoms reported Skin: No symptoms reported Hematologic/Lymphatic: No symptoms reported Neurological/Psychological: No symptoms reported -: Yes All other systems reviewed and negative Physical Exam - Vital signs Vitals: Temp Pulse Resp BP Pulse Ox 98.5 F 82 20 160/85 H 98 10/09/18 15:12 10/09/18 15:12 10/09/18 15:12 10/09/18 15:12 10/09/18 15:12 Interpretation: Normal - General General appearance: Appears well, Alert - HEENT Head: Normocephalic, Atraumatic Eyes: Normal Pupils: PERRL - Respiratory Respiratory status: No respiratory distress Chest status: Nontender Breath sounds: Normal Chest palpation: Normal - Cardiovascular Rhythm: Regular Heart sounds: Normal auscultation Murmur: No - Abdominal Inspection: Normal Distension: No distension Bowel sounds: Normal Tenderness: Nontender Organomegaly: No organomegaly - Back Back: Normal, Nontender - Extremities General upper extremity: Normal inspection, Nontender, Normal color, Normal ROM, Normal temperature General lower extremity: Normal inspection, Nontender, Normal color, Normal ROM, Normal temperature, Normal weight bearing. No: Julien's sign - Neurological Neuro grossly intact: Yes Cognition: Normal Orientation: AAOx4 [place] Coma Scale Eye Opening: Spontaneous [place] Coma Scale Verbal: Oriented [place] Coma Scale Motor: Obeys Commands [place] Coma Scale Total: 15 Speech: Normal Motor strength normal: LUE, RUE, LLE, RLE Sensory: Normal - Psychological Associated symptoms: Normal affect, Normal mood - Skin Skin Temperature: Warm Skin Moisture: Dry Skin Color: Normal Course - Re-evaluation Re-evalutation: 10/09/18 17:34 Patient reports resolution of symptoms after receiving GI cocktail, symptoms have been going on for 2 weeks and are a burning sensation in the chest, evaluation here in the emergency department unremarkable, lab and imaging findings discussed with patient at bedside, patient will be discharged with prescription for Pepcid as well as instructions for follow-up and advised to return if any additional concerns, patient acknowledges understanding and agreement with this plan - Vital Signs Vital signs: Temp Pulse Resp BP Pulse Ox 98.5 F 82 20 160/85 H 98 10/09/18 15:12 10/09/18 15:12 10/09/18 15:12 10/09/18 15:12 10/09/18 15:12 - Laboratory Result Diagrams: 10/09/18 15:53 10/09/18 15:53 Laboratory results interpreted by me: 10/09/18 10/09/18 15:53 15:53 RDW 15.2 H Glucose 250 H - Diagnostic Test Radiology reviewed: Image reviewed, Reports reviewed - EKG Interpretation by Me EKG shows normal: Sinus rhythm Rate: Normal Rhythm: NSR When compared to previous EKG there are: No significant change Discharge - Discharge Clinical Impression: Chest pain Qualifiers: Chest pain type: unspecified Qualified Code(s): R07.9 - Chest pain, unspecified Acid reflux Qualifiers: Esophagitis presence: without esophagitis Qualified Code(s): K21.9 - Gastro- esophageal reflux disease without esophagitis Condition: Stable Disposition: HOME, SELF-CARE Instructions: Chest Pain of Unclear Cause ([facility]), Reflux Disease (GERD) ([facility]) Additional Instructions: Follow up with your primary care provider in one to 2 days. Return to the emergency room immediately if symptoms worsen or any additional concerns. Prescriptions: Famotidine [Pepcid 20 mg Tablet] 20 mg PO BID #60 tablet Referrals: [facility] [Primary Care Provider] - Follow up as needed
[2018-10-09 18:20] VITALS: BP 117/73
--- NOTE | 2018-10-09 18:51 | EKG REPORT ---
SEVERITY:- ABNORMAL ECG - SINUS RHYTHM SUPRAVENTRICULAR BIGEMINY LEFT AXIS DEVIATION LEFT VENTRICULAR HYPERTROPHY : Confirmed by: Suman Stokes MD 09-Oct-2018 18:51:16
== END 2018-10-09 18:50 | disposition home or self-care (01) ==
LOC: ER 14:53
DX: R07.9 Chest pain, unspecified (principal); K21.9 Gastro-esophageal reflux disease without esophagitis; R06.02 Shortness of breath; R05 Cough; E78.00 Pure hypercholesterolemia, unspecified; I10 Essential (primary) hypertension; E11.9 Type 2 diabetes mellitus without complications
CPT/HCPCS: 93005; 99285; 96374; 36415; 85025; 80053; 84484; 71045; 93010; J3490; S0028

== ENCOUNTER 2018-10-26 18:10 | Observation (INO) | payer OTHER ==
[2018-10-26 18:45] LABS: ABSOLUTE BASOPHILS # (AUTO) 0.1 10^3/uL (0.0-0.2); ABSOLUTE EOSINOPHILS # (AUTO) 0.4 10^3/uL (0.0-0.6); ABSOLUTE LYMPHOCYTES (AUTO) 2.5 10^3/uL (0.5-4.7); ABSOLUTE MONOCYTES (AUTO) 0.4 10^3/uL (0.1-1.4); ABSOLUTE NEUT (AUTO) 5.6 10^3/uL (1.7-8.2); BASOPHILS % (AUTO) 0.6 % (0-2); EOSINOPHILS % (AUTO) 4.1 % (0-6); HEMOGLOBIN 14.5 g/dL (12.0-15.5); MEAN CORPUSCULAR HEMOGLOBIN 28.8 pg (27.0-33.4); MEAN CORPUSCULAR HGB CONC 33.6 g/dL (32.0-36.0); MEAN CORPUSCULAR VOLUME 86 fl (80-97); MONOCYTES % (AUTO) 4.2 % (3-13); PLATELET COUNT 204 10^3/uL (150-450); RED BLOOD COUNT 5.02 10^6/uL (3.72-5.28); RED CELL DISTRIBUTION WIDTH 15.7 % (11.5-14.0); SEGMENTED NEUTROPHILS % (AUTO) 63.1 % (42-78); TOTAL CELLS COUNTED % (AUTO) 100 %; WHITE BLOOD COUNT 8.9 10^3/uL (4.0-10.5)
[2018-10-26 19:00] LABS: ALANINE AMINOTRANSFERASE 30 U/L (9-52); ALBUMIN 4.3 g/dL (3.5-5.0); ALKALINE PHOSPHATASE 98 U/L (38-126); ANION GAP 11 (5-19); ASPARTATE AMINO TRANSFERASE 27 U/L (14-36); BILIRUBIN,DIRECT 0.2 mg/dL (0.0-0.4); BILIRUBIN,TOTAL 0.4 mg/dL (0.2-1.3); BLOOD UREA NITROGEN 15 mg/dL (7-20); CALCIUM 9.6 mg/dL (8.4-10.2); CARBON DIOXIDE 28 mmol/L (22-30); CHLORIDE 106 mmol/L (98-107); GLUCOSE 108 mg/dL (75-110); LIPASE 68.7 U/L (23-300); POTASSIUM 3.8 mmol/L (3.6-5.0); SODIUM 144.5 mmol/L (137-145); TOTAL PROTEIN 7.3 g/dL (6.3-8.2)
[2018-10-26 19:11] LABS: TROPONIN I 0.017 ng/mL
--- NOTE | 2018-10-26 19:30 | RADIOLOGY REPORT (SQ) ---
EXAM DESCRIPTION: CHEST SINGLE VIEW COMPLETED DATE/TIME: 10/26/2018 7:01 pm REASON FOR STUDY: sob, cp COMPARISON: Chest x-ray 10/09/2018 EXAM PARAMETERS: NUMBER OF VIEWS: One view. TECHNIQUE: Single frontal radiographic view of the chest acquired. RADIATION DOSE: NA LIMITATIONS: None. FINDINGS: LUNGS AND PLEURA: No consolidation, pneumothorax or pleural effusion. MEDIASTINUM AND HILAR STRUCTURES: No masses. Contour normal. HEART AND VASCULAR STRUCTURES: The heart is upper normal limit in size. No overt vascular congestion . BONES: No acute findings. HARDWARE: None in the chest. IMPRESSION: NO ACUTE RADIOGRAPHIC FINDING IN THE CHEST. TECHNICAL DOCUMENTATION: JOB ID: [id number] [employer]- All Rights Reserved Reading location - IP/workstation name: [email or web address]
--- NOTE | 2018-10-26 19:35 | ER Document Report ---
ED General - General Chief Complaint: Shortness Of Breath Stated Complaint: SHORTNESS OF BREATH Time Seen by Provider: 10/26/18 18:31 Primary Care Provider: [facility] [Primary Care Provider] - Follow up as needed Notes: Patient is a 58-year-old female with past medical history of essential hypertension, diabetes, obesity, presents with several weeks of ongoing exertional chest pain or shortness of breath. She has also noted increasing swelling to her bilateral lower extremities. Was seen here at the end of September 2018, diagnosed with reflux although did have an elevated troponin at 0.046 at that time. Patient reports that he should have she exerts herself she develops pressure in her chest without radiation and shortness of breath. States that symptoms do resolve with rest. Has not seen her primary care doctor regarding today's concerns. Denies any known history of coronary artery dis ease. Has not noted that anything seems to improve or worsen the frequency of her symptoms. Denies chest pain at the time of my evaluation. TRAVEL OUTSIDE OF THE [place] IN LAST 30 DAYS: No - Related Data Allergies/Adverse Reactions: No Known Allergies Allergy (Verified 10/26/18 18:11) Past Medical History - General Information source: Patient - Social History Smoking Status: Never Smoker Frequency of alcohol use: None Drug Abuse: None Lives with: Spouse/Significant other Family History: Arthritis, CAD, CVA, DM, Hyperlipidemia, Hypertension, Malignancy. denies: COPD Patient has suicidal ideation: No Patient has homicidal ideation: No - Past Medical History Cardiac Medical History: Reports: Hx Hypercholesterolemia, Hx Hypertension Denies: Hx Atrial Fibrillation, Hx Congestive Heart Failure, Hx Coronary Artery Disease, Hx DVT, Hx Heart Attack, Hx Peripheral Vascular Disease, Hx Pulmonary Embolism, Hx Heart Murmur Endocrine Medical History: Reports: Hx Diabetes Mellitus Type 2 Renal/ Medical History: Denies: Hx Peritoneal Dialysis Musculoskeletal Medical History: Reports Hx Arthritis Past Surgical History: Reports: Hx Section Review of Systems - Review of Systems Notes: Constitutional: Negative for fever. HENT: Negative for sore throat. Eyes: Negative for visual changes. Cardiovascular: Positive for chest pain. Respiratory: Positive for shortness of breath. Gastrointestinal: Negative for abdominal pain, vomiting or diarrhea. Genitourinary: Negative for dysuria. Musculoskeletal: Negative for back pain. Skin: Negative for rash. Neurological: Negative for headaches, weakness or numbness. 10 point ROS negative except as marked above and in HPI. Physical Exam - Vital signs Vitals: Temp Pulse Resp BP Pulse Ox 99.4 F 87 18 168/72 H 99 10/26/18 18:16 10/26/18 18:16 10/26/18 18:16 10/26/18 18:16 10/26/18 18:16 Interpretation: Hypertensive Notes: PHYSICAL EXAMINATION: GENERAL: Well-appearing, well-nourished and in no acute distress. HEAD: Atraumatic, normocephalic. EYES: Pupils equal round and reactive to light, extraocular movements intact, sclera anicteric, conjunctiva are normal. ENT: nares patent, oropharynx clear without exudates. Moist mucous membranes. NECK: Normal range of motion, supple without lymphadenopathy LUNGS: Breath sounds clear to auscultation bilaterally and equal. No wheezes rales or rhonchi. HEART: Regular rate and rhythm without murmurs ABDOMEN: Soft, nontender, normoactive bowel sounds. No guarding, no rebound. No masses appreciated. EXTREMITIES: Normal range of motion, 2+ pitting edema in the bilateral lower extremities that is equal and symmetric. No cyanosis. NEUROLOGICAL: No focal neurological deficits. Moves all extremities sponta neously and on command. PSYCH: Normal mood, normal affect. SKIN: Warm, Dry, normal turgor, no rashes or lesions noted. Course - Re-evaluation Re-evalutation: 10/26/18 19:37 Patient presents with signs that are extraordinarily worrisome for angina with possible development of associated congestive picture. Chest x-ray last month did show new onset cardiomegaly as well as an indeterminant troponin. Patient has multiple risk factors for coronary artery disease including obesity, diabetes and uncontrolled hypertension. She will require hospitalization for stress testing, echocardiogram. Initial troponin within acceptable range. With the hospitalist. 10/26/18 19:53 I discussed this case with Dr. Castanon patient for observation. - Vital Signs Vital signs: Temp Pulse Resp BP Pulse Ox 99.4 F 87 22 H 173/78 H 98 10/26/18 18:16 10/26/18 18:16 10/26/18 19:02 10/26/18 19:02 10/26/18 19:02 - Laboratory Result Diagrams: 10/26/18 18:32 10/26/18 18:32 Laboratory results interpreted by me: 10/26/18 10/26/18 18:32 18:32 RDW 15.7 H Est GFR (Non-Af Amer) 49 L - Diagnostic Test Radiology reviewed: Image reviewed, Reports reviewed Radiology results interpreted by me: 10/26/18 19:38 Chest x-ray: Cardiomegaly without overt pulmonary edema - EKG Interpretation by Me Additional EKG results interpreted by me: 10/26/18 19:38 Sinus rhythm, rate 81. No ST elevations or depressions. LVH. QTC 437 Discharge - Discharge Clinical Impression: Exertional shortness of breath, Lower extremity edema Chest pain Qualifiers: Chest pain type: unspecified Qualified Code(s): R07.9 - Chest pain, unspecified Condition: Fair Disposition: ADMITTED OBSERVATION Admitting Provider: Hospitalist Unit Admitted: Telemetry Referrals: [facility] [Primary Care Provider] - Follow up as needed
--- NOTE | 2018-10-26 19:43 | EKG REPORT ---
SEVERITY:- ABNORMAL ECG - SINUS RHYTHM LEFT ANTERIOR FASCICULAR BLOCK LEFT VENTRICULAR HYPERTROPHY : Confirmed by: Kenisha Russ MD 26-Oct-2018 19:42:30
[2018-10-26] MEDS ORDERED: DEXTROSE 40% GEL 15 GM TUBE PO PRN ×2 (20:04)
[2018-10-26] MEDS ORDERED: NITROGLYCERIN 0.4 MG/TAB 25 TAB/BOTTLE SL PRN (20:04)
[2018-10-26] MEDS ORDERED: GLUCAGON,HUMAN RECOMB 1 MG INJ IM PRN (20:04)
[2018-10-26] MEDS ORDERED: MAG HYDROX/AL HYDROX/SIMETH SUSP 30 ML UDCUP PO PRN (20:04)
[2018-10-26] MEDS ORDERED: DEXTROSE 50%-WATER 25 GM/50 ML DISP.SYRIN IV PRN ×2 (20:04)
[2018-10-26] MEDS ORDERED: RAMIPRIL 10 MG CAPSULE PO ONE (20:15)
--- NOTE | 2018-10-26 20:51 | RADIOLOGY REPORT (SQ) ---
CT CHEST ANGIOGRAPHY WITHOUT THEN WITH IV CONTRAST HISTORY: Shortness of breath. COMPARISON: None. TECHNIQUE: CT angiogram of the chest with IV contrast. 3-D MIP images were obtained in coronal and sagittal reconstructions. This exam was performed according to our departmental dose-optimization program, which includes automated exposure control, adjustment of the mA and/or kV according to patient size and/or use of iterative reconstruction technique. FINDINGS: No filling defects are identified in the pulmonary trunk, main left and right pulmonary arteries, or the segmental branches. No aortic aneurysm or dissection seen. The thyroid gland is normal. No mediastinal or hilar adenopathy. The heart size is normal without pericardial effusion. No consolidation, pleural effusion, or pneumothorax is identified. The visualized upper abdomen demonstrates no acute findings. No acute osseous findings are seen. IMPRESSION: 1. No acute pulmonary embolism. 2. No aortic aneurysm or dissection.
[2018-10-26 21:02] LABS: APPEARANCE,URINE CLEAR; BILIRUBIN,URINE NEGATIVE (NEGATIVE); COLOR,URINE YELLOW; GLUCOSE, URINE NEGATIVE (NEGATIVE); KETONES,URINE NEGATIVE (NEGATIVE); LEUKOCYTE ESTERASE,URINE NEGATIVE (NEGATIVE); NITRITE,URINE NEGATIVE (NEGATIVE); PROTEIN,URINE NEGATIVE (NEGATIVE); URINE SPECIFIC GRAVITY 1.013
[2018-10-26] MEDS ORDERED: RAMIPRIL 10 MG CAPSULE ONE (21:58)
[2018-10-26] MEDS ORDERED: ATORVASTATIN CALCIUM 40 MG TABLET PO SCH (22:00)
[2018-10-26] MEDS: FAMOTIDINE 20 MG TABLET PO SCH (23:25)
[2018-10-26] MEDS: ACETAMINOPHEN 325 MG TABLET PO PRN (23:25)
[2018-10-27] MEDS: INSULIN LISPRO 100 UNIT/ML 3 ML VIAL SUBCUT SCH ×4 (00:27→17:33)
--- NOTE | 2018-10-27 06:46 | PDOC H&P ---
History of Present Illness Admission Date/PCP: 10/26/18 20:03 [facility] Patient complains of: Chest pain History of Present Illness: DG PANDEY is a 58 year old female with a past medical history of hypertension, diabetes, morbid obesity, GERD and osteoarthritis. Patient presents with 2 weeks of intermittent exertional left-sided chest pain ass ociated with shortness of breath without palpitations or nausea or vomiting. Patient describes this episodes as burning and aching in nature without radiation and a 2 out of 5 intensity. She denies alleviating or exacerbating factors. In the emergency room she has an unremarkable workup but found to have uncontrolled hypertension in the 170 systolic range. She is referred to the hospitalist for admission, denies previous episode or cardiac stress test. She is unable to comment on glycemic control, ALAN inhibitor is ordered. Past Medical History Cardiac Medical History: Reports: Hyperlipidema, Hypertension Denies: Atrial Fibrillation, Congestive Heart Failure, Coronary Artery Disease, DVT, Myocardial Infarction, Peripheral Vascular Disease, Pulmonary Embolism, Heart Murmur Endocrine Medical History: Reports: Diabetes Mellitus Type 2, Obesity Musculoskeltal Medical History: Reports: Arthritis Past Surgical History Past Surgical History: Reports: Section Social History Information Source: Patient, [facility] Records Lives with: Spouse/Significant other Smoking Status: Never Smoker Frequency of Alcohol Use: None Drugs: None - Advance Directive Resuscitation Status: Full Code Family History Family History: Arthritis, CAD, CVA, DM, Hyperlipidemia, Hypertension, Malignancy. denies: COPD Parental Family History Reviewed: Yes Children Family History Reviewed: Yes Sibling(s) Family History Reviewed.: Yes Medication/Allergy Home Medications: Cyclobenzaprine HCl [Flexeril 10 mg Tablet] 10 mg PO TIDP PRN #15 tab 10/11/15 Hydrocodone/Acetaminophen [[place] 5-325 mg Tablet] 1 tab PO TIDP PRN #14 tablet 10/11/15 Cyclobenzaprine HCl [Flexeril 10 mg Tablet] 10 mg PO TIDP PRN #15 tab 09/15/16 Diclofenac Sodium [Voltaren] 75 mg PO BID #20 tablet. 01/04/17 Tramadol HCl [Ultram] 50 mg PO TID PRN #10 tablet 01/04/17 Ibuprofen 600 mg PO Q6HP PRN #20 tablet 09/20/17 Famotidine [Pepcid 20 mg Tablet] 20 mg PO BID #60 tablet 10/09/18 Allergies/Adverse Reactions: No Known Allergies Allergy (Verified 10/26/18 18:11) Review of Systems Constitutional: ABSENT: chills, fever(s), headache(s), weight gain, weight loss Eyes: ABSENT: visual disturbances Ears: ABSENT: hearing changes Cardiovascular: ABSENT: chest pain, dyspnea on exertion, edema, orthropnea, palpitations Respiratory: ABSENT: cough, hemoptysis Gastrointestinal: ABSENT: abdominal pain, constipation, diarrhea, hematemesis, hematochezia, nausea, vomiting Genitourinary: ABSENT: dysuria, hematuria Musculoskeletal: ABSENT: joint swelling Integumentary: ABSENT: rash, wounds Neurological: ABSENT: abnormal gait, abnormal speech, confusion, dizziness, fo felipe weakness, syncope Psychiatric: ABSENT: anxiety, depression, homidical ideation, suicidal ideation Endocrine: ABSENT: cold intolerance, heat intolerance, polydipsia, polyuria Hematologic/Lymphatic: ABSENT: easy bleeding, easy bruising Physical Exam Vital Signs: Temp Pulse Resp BP Pulse Ox 98.4 F 89 18 151/78 H 99 10/26/18 22:29 10/27/18 02:00 10/26/18 22:29 10/26/18 22:29 10/26/18 22:29 Intake & Output 10/25/18 10/26/18 10/27/18 11:59 11:59 11:59 Intake Total 320 Output Total 800 Balance -480 Weight 106.2 kg General appearance: PRESENT: no acute distress, morbidly obese, well-developed, well-nourished Head exam: PRESENT: atraumatic, normocephalic Eye exam: PRESENT: conjunctiva pink, EOMI, PERRLA. ABSENT: scleral icterus Ear exam: PRESENT: normal external ear exam Mouth exam: PRESENT: moist, tongue midline Neck exam: ABSENT: carotid bruit, JVD, lymphadenopathy, thyromegaly Respiratory exam: PRESENT: clear to auscultation [place]. ABSENT: rales, rhonchi, wheezes Cardiovascular exam: PRESENT: RRR, other - Reproducible left-sided chest wall pain to palpation. Stating this is somewhat the pain for which she seeks evaluation.. ABSENT: diastolic murmur, rubs, systolic murmur Pulses: PRESENT: normal dorsalis pedis pul Vascular exam: PRESENT: normal capillary refill GI/Abdominal exam: PRESENT: normal bowel sounds, soft. ABSENT: distended, guarding, mass, organolmegaly, rebound, tenderness Rectal exam: PRESENT: deferred Extremities exam: PRESENT: full ROM. ABSENT: calf tenderness, clubbing, pedal edema Neurological exam: PRESENT: alert, awake, oriented to person, oriented to place, oriented to time, oriented to situation, CN II-XII grossly intact. ABSENT: motor sensory deficit Psychiatric exam: PRESENT: appropriate affect, normal mood. ABSENT: homicidal ideation, suicidal ideation Skin exam: PRESENT: dry, intact, warm. ABSENT: cyanosis, rash Results Laboratory Results: 10/26/18 18:32 10/26/18 18:32 10/26/18 10/26/18 10/26/18 18:32 18:32 18:32 WBC 8.9 RBC 5.02 Hgb 14.5 Hct 43.0 MCV 86 MCH 28.8 MCHC 33.6 RDW 15.7 H Plt Count 204 Seg Neutrophils % 63.1 Lymphocytes % 28.0 Monocytes % 4.2 Eosinophils % 4.1 Basophils % 0.6 Absolute Neutrophils 5.6 Absolute Lymphocytes 2.5 Absolute Monocytes 0.4 Absolute Eosinophils 0.4 Absolute Basophils 0.1 Sodium 144.5 Potassium 3.8 Chloride 106 Carbon Dioxide 28 Anion Gap 11 BUN 15 Creatinine 1.13 Est GFR ( Amer) > 60 Est GFR (Non-Af Amer) 49 L Glucose 108 Calcium 9.6 Total Bilirubin 0.4 AST 27 ALT 30 Alkaline Phosphatase 98 Total Protein 7.3 Albumin 4.3 Lipase 68.7 TSH 2.81 Urine Color Urine Appearance Urine pH Ur Specific [place] Urine Protein Urine Glucose (UA) Urine Ketones Urine Blood Urine Nitrite Ur Leukocyte Esterase Urine WBC (Auto) 10/26/18 20:45 WBC RBC Hgb Hct MCV MCH MCHC RDW Plt Count Seg Neutrophils % Lymphocytes % Monocytes % Eosinophils % Basophils % Absolute Neutrophils Absolute Lymphocytes Absolute Monocytes Absolute Eosinophils Absolute Basophils Sodium Potassium Chloride Carbon Dioxide Anion Gap BUN Creatinine Est GFR ( Amer) Est GFR (Non-Af Amer) Glucose Calcium Total Bilirubin AST ALT Alkaline Phosphatase Total Protein Albumin Lipase TSH Urine Color YELLOW Urine Appearance CLEAR Urine pH 6.0 Ur Specific [place] 1.013 Urine Protein NEGATIVE Urine Glucose (UA) NEGATIVE Urine Ketones NEGATIVE Urine Blood NEGATIVE Urine Nitrite NEGATIVE Ur Leukocyte Esterase NEGATIVE Urine WBC (Auto) 1 10/26/18 10/27/18 18:32 00:20 Troponin I 0.017 0.018 NT-Pro-B Natriuret Pep 90 Impressions: Chest/Abdomen CTA 10/26/18 00:00 IMPRESSION: 1. No acute pulmonary embolism. 2. No aortic aneurysm or dissection. Chest X-Ray 10/26/18 18:34 IMPRESSION: NO ACUTE RADIOGRAPHIC FINDING IN THE CHEST. Assessment & Plan - Diagnosis (1) Atypical chest pain Is this a current diagnosis for this admission?: Yes Plan: Atypical chest pain though the patient's pain is atypical there are multiple risk factors for coronary artery disease and subsequently will observe and evaluation of acute coronary syndrome versus coronary artery disease with an ginal equivalents versus chest wall pain. Symptomatic management, cardiac monitoring blood pressure Q6 hours ,TSH, lipid profile, serial cardiac enzymes and cardiac stress test (2) Diabetes Qualifiers: Diabetes mellitus type: type 2 Is this a current diagnosis for this admission?: Yes Plan: Medication reconciliation pending, sliding scale insulin ordered every 6, follow-up A1c (3) Hypertension Is this a current diagnosis for this admission?: Yes Plan: ALAN inhibitor ordered, consider hydralazine and Lasix as needed (4) Exertional shortness of breath Is this a current diagnosis for this admission?: Yes Plan: Lungs clear, oxygen saturation 99% on room air, anginal equivalent versus deconditioning. Supplemental oxygen, follow-up cardiac stress test. - Time Time Spent: 50 to 70 Minutes
[2018-10-27 07:05] LABS: CHOLESTEROL 132.02 mg/dL (0-200); TRIGLYCERIDES 67 mg/dL (<150)
[2018-10-27 07:15] LABS: DIRECT LDL 75 mg/dL (<100)
[2018-10-27] MEDS: RAMIPRIL 10 MG CAPSULE PO SCH (12:49)
[2018-10-27] MEDS: FAMOTIDINE 20 MG TABLET PO SCH ×2 (12:50→21:09)
[2018-10-27] MEDS: NITROGLYCERIN 2.5 MG (0.1 MG/HR) PATCH.TD24 TD SCH (12:50)
[2018-10-27] MEDS: DOCUSATE SODIUM 100 MG CAPSULE PO SCH ×2 (12:50→17:32)
--- NOTE | 2018-10-27 13:35 | NONINVASIVE CARDIOLOGY REPORT ---
Date of procedure 10/27/2018 Patient name Marjorie Simmons Date of 1960 Age [age] years old Sex female Ordering provider Maxx Castanon MD Reason for study chest pain Imaging protocol Rest Lexiscan nuclear MIBI SPECT study Of the heart were obtained 60 minutes after injection of Cardiolite 14.83 mCi. Under the supervision of Jayesh Carias MD patient was given Lexiscan 0.4 mg IV at rest followed by Cardiolite 46.5 mCi. Patient's resting heart rate was 86 bpm and increased to a maximum of 133 bpm. Patient's resting blood pressure was 130/79 and changed to 194/96 mmHg after Lexiscan injection. Patient complained of shortness of breath after Lexiscan injection which improved during recovery. Patient's resting EKG showed sinus rhythm with poor R wave progression and nonspecific ST changes in lateral leads and after Lexiscan injection patient was noted to be in sinus tachycardia with downsloping ST depression noted in lateral leads but not specific for ischemia. Some of the stress EKGs had artifacts that limit their interpretation. Stress images of the heart were obtained 45 minutes after Cardiolite stress dose was given. Raw rest and stress images were reviewed and showed significant gut uptake and prominent breast shadow overlying the heart. Myocardial perfusion images with attenuation correction showed moderate sized perfusion defect in the inferior, inferolateral and inferoseptal LV wall segments on both rest and stress images appearing predominantly fixed and suggestive of myocardial scarring but mild ischemia cannot be ruled out. LVEF was calculated at 51%. Computer-assisted tomographic analysis shows mild hypokinesis in the inferior and inferolateral LV wall segments. Impression 1. Lexiscan induced nonspecific ST changes as mentioned above. 2. Myocardial perfusion imaging shows moderate size, mild severity perfusion defect in the inferior, inferolateral and inferoseptal LV wall segments suggestive of myocardial scarring with mild ischemia not ruled out. 3. LVEF calculated at 51%. 4. Computer-assisted tomographic analysis shows mild hypokinesis in the inferior and inferolateral LV wall segments. Clinical correlation recommended in view of moderate size perfusion defect and if patient has significant risk factors and already on optimal medical therapy with anginal symptoms then consideration should be made for further invasive coronary workup. Electronically signed by Jayesh Carias MD [facility]
[2018-10-27] MEDS ORDERED: REGADENOSON INJ 0.4 MG/5 ML DISP.SYRIN IV ONE (14:02)
--- NOTE | 2018-10-27 14:52 | PDOC PROGRESS REPORT ---
Subjective Progress Note for:: 10/27/18 Subjective:: This is a 58 years old black female patient who presented with chief complaint of chest pain. Patient has been in her usual baseline state of health up until 2 weeks when she started to have on and off chest pain localized to her precordium and associated with shortness of breath. Patient has multiple risk factors including diabetes mellitus, hypertension, hyperlipidemia and obesity. To rule out acute coronary syndrome patient admitted for observation. HER-2 sets of cardiac enzymes are negative and she has nonspecific T wave changes. This morning patient undergone nuclear cardiac stress test and reportedly she has inferior and inferolateral and inferior septal fixed lesion most probably myocardial scar. recommended to keep the patient overnight, maximize her cardioprotective medications and if she is symptom-free to discharge her tomorrow and follow-up with Dr. Russ. Reason For Visit: CP DM HTN Physical Exam Vital Signs: Temp Pulse Resp BP Pulse Ox 97.6 F 72 24 H 131/84 H 100 10/27/18 13:16 10/27/18 13:16 10/27/18 13:16 10/27/18 13:16 10/27/18 13:16 Intake & Output 10/26/18 10/27/18 10/28/18 06:59 06:59 06:59 Intake Total 320 Output Total 800 Balance -480 Weight 106.2 kg General appearance: PRESENT: no acute distress, well-developed, well-nourished Head exam: PRESENT: atraumatic, normocephalic Eye exam: PRESENT: conjunctiva pink, EOMI, PERRLA. ABSENT: scleral icterus Ear exam: PRESENT: normal external ear exam Mouth exam: PRESENT: moist, tongue midline Neck exam: ABSENT: carotid bruit, JVD, lymphadenopathy, thyromegaly Respiratory exam: PRESENT: clear to auscultation [place]. ABSENT: rales, rhonchi, w heezes Cardiovascular exam: PRESENT: RRR. ABSENT: diastolic murmur, rubs, systolic murmur Pulses: PRESENT: normal dorsalis pedis pul Vascular exam: PRESENT: normal capillary refill GI/Abdominal exam: PRESENT: normal bowel sounds, soft. ABSENT: distended, guarding, mass, organolmegaly, rebound, tenderness Rectal exam: PRESENT: deferred Extremities exam: PRESENT: full ROM. ABSENT: calf tenderness, clubbing, pedal edema Neurological exam: PRESENT: alert, awake, oriented to person, oriented to place, oriented to time, oriented to situation, CN II-XII grossly intact. ABSENT: motor sensory deficit Psychiatric exam: PRESENT: appropriate affect, normal mood. ABSENT: homicidal ideation, suicidal ideation Skin exam: PRESENT: dry, intact, warm. ABSENT: cyanosis, rash Results Laboratory Results: 10/26/18 18:32 10/26/18 18:32 10/26/18 10/26/18 10/26/18 18:32 18:32 18:32 WBC 8.9 RBC 5.02 Hgb 14.5 Hct 43.0 MCV 86 MCH 28.8 MCHC 33.6 RDW 15.7 H Plt Count 204 Seg Neutrophils % 63.1 Lymphocytes % 28.0 Monocytes % 4.2 Eosinophils % 4.1 Basophils % 0.6 Absolute Neutrophils 5.6 Absolute Lymphocytes 2.5 Absolute Monocytes 0.4 Absolute Eosinophils 0.4 Absolute Basophils 0.1 Sodium 144.5 Potassium 3.8 Chloride 106 Carbon Dioxide 28 Anion Gap 11 BUN 15 Creatinine 1.13 Est GFR ( Amer) > 60 Est GFR (Non-Af Amer) 49 L Glucose 108 Calcium 9.6 Total Bilirubin 0.4 AST 27 ALT 30 Alkaline Phosphatase 98 Total Protein 7.3 Albumin 4.3 Triglycerides Cholesterol LDL Cholesterol Direct VLDL Cholesterol HDL Cholesterol Lipase 68.7 TSH 2.81 Urine Color Urine Appearance Urine pH Ur Specific [place] Urine Protein Urine Glucose (UA) Urine Ketones Urine Blood Urine Nitrite Ur Leukocyte Esterase Urine WBC (Auto) 10/26/18 10/27/18 20:45 06:35 WBC RBC Hgb Hct MCV MCH MCHC RDW Plt Count Seg Neutrophils % Lymphocytes % Monocytes % Eosinophils % Basophils % Absolute Neutrophils Absolute Lymphocytes Absolute Monocytes Absolute Eosinophils Absolute Basophils Sodium Potassium Chloride Carbon Dioxide Anion Gap BUN Creatinine Est GFR ( Amer) Est GFR (Non-Af Amer) Glucose Calcium Total Bilirubin AST ALT Alkaline Phosphatase Total Protein Albumin Triglycerides 67 Cholesterol 132.02 LDL Cholesterol Direct 75 VLDL Cholesterol 13.0 HDL Cholesterol 44 Lipase TSH Urine Color YELLOW Urine Appearance CLEAR Urine pH 6.0 Ur Specific [place] 1.013 Urine Protein NEGATIVE Urine Glucose (UA) NEGATIVE Urine Ketones NEGATIVE Urine Blood NEGATIVE Urine Nitrite NEGATIVE Ur Leukocyte Esterase NEGATIVE Urine WBC (Auto) 1 10/26/18 10/27/18 10/27/18 18:32 00:20 06:35 Troponin I 0.017 0.018 < 0.012 NT-Pro-B Natriuret Pep 90 Impressions: Chest/Abdomen CTA 10/26/18 00:00 IMPRESSION: 1. No acute pulmonary embolism. 2. No aortic aneurysm or dissection. Chest X-Ray 10/26/18 18:34 IMPRESSION: NO ACUTE RADIOGRAPHIC FINDING IN THE CHEST. Assessment & Plan - Diagnosis (1) Chest pain Qualifiers: Chest pain type: other chest pain Qualified Code(s): R07.89 - Other chest pain; R07.8 - Other chest pain Is this a current diagnosis for this admission?: Yes Plan: Nuclear cardiac stress test is positive for myocardial scar. Optimize her cardiac medications. Follow-up with Dr. Russ as outpatient. (2) Hyperlipidemia Qualifiers: Hyperlipidemia type: unspecified Qualified Code(s): E78.5 - Hyperlipidemia, unspecified Is this a current diagnosis for this admission?: Yes Plan: Lipitor 40 mg p.o. nightly (3) Type 2 diabetes mellitus Is this a current diagnosis for this admission?: Yes Plan: Continue home medication and sliding scale. (4) Obesity (BMI 35.0-39.9 without comorbidity) Is this a current diagnosis for this admission?: Yes Plan: Patient advised her to do lifestyle modification.
[2018-10-27] MEDS: ACETAMINOPHEN 325 MG TABLET PO PRN (20:17)
[2018-10-27] MEDS: CARVEDILOL 12.5 MG TABLET PO SCH (21:09)
[2018-10-27] MEDS ORDERED: ATORVASTATIN CALCIUM 40 MG TABLET PO SCH (22:00)
[2018-10-28] MEDS: INSULIN LISPRO 100 UNIT/ML 3 ML VIAL SUBCUT SCH ×3 (00:18→11:47)
[2018-10-28] MEDS: DOCUSATE SODIUM 100 MG CAPSULE PO SCH (09:26)
[2018-10-28] MEDS: CARVEDILOL 12.5 MG TABLET PO SCH (09:26)
[2018-10-28] MEDS: RAMIPRIL 10 MG CAPSULE PO SCH (09:28)
[2018-10-28] MEDS: FAMOTIDINE 20 MG TABLET PO SCH (09:29)
[2018-10-28] MEDS: NITROGLYCERIN 2.5 MG (0.1 MG/HR) PATCH.TD24 TD SCH (09:29)
--- NOTE | 2018-10-28 11:24 | PDOC DISCHARGE SUMMARY ---
General - Admit/Disc Date/PCP Admission Date/Primary Care Provider: 10/26/18 20:03 [facility] Discharge Date: 10/28/18 - Discharge Diagnosis (1) Chest pain Is this a current diagnosis for this admission?: Yes (2) Hyperlipidemia Is this a current diagnosis for this admission?: Yes (3) Type 2 diabetes mellitus Is this a current diagnosis for this admission?: Yes (4) Obesity (BMI 35.0-39.9 without comorbidity) Is this a current diagnosis for this admission?: Yes - Additional Information Resuscitation Status: Full Code Home Medications: Amlodipine Besylate [Norvasc 5 mg Tablet] 5 mg PO DAILY 10/27/18 Atorvastatin Calcium [Lipitor 80 mg Tablet] 80 mg PO DAILY 10/27/18 Insulin Aspart [Novolog Flexpen] 20 unit SUBCUT MEALS 10/27/18 Insulin Glargine,Hum.rec.anlog [Lantus Insulin Inj 300 Unit/3 ml Pen] 55 unit SUBCUT BID 10/27/18 Lisinopril/Hydrochlorothiazide [Lisinopril-Hctz 20-25 mg Tab] 1 each PO DAILY 10/27/18 Meloxicam [Mobic] 15 mg PO DAILY 10/27/18 Metformin HCl [Metformin HCl ER] 1,000 mg PO BID 10/27/18 History of Present Illness History of Present Illness: DG PANDEY is a 58 year old female with a past medical history of hypertens ion, diabetes, morbid obesity, GERD and osteoarthritis. Patient presents with 2 weeks of intermittent exertional left-sided chest pain associated with shortness of breath without palpitations or nausea or vomiting. Patient describes this episodes as burning and aching in nature without radiation and a 2 out of 5 intensity. She denies alleviating or exacerbating factors. In the emergency room she has an unremarkable workup but found to have uncontrolled hypertension in the 170 systolic range. She is referred to the hospitalist for admission, denies previous episode or cardiac stress test. She is unable to comment on glycemic control, ALAN inhibitor is ordered. Hospital Course Hospital Course: This is a 58 years old black female patient who presented with chief complaint of chest pain. Patient has been in her usual baseline state of health up until 2 weeks when she started to have on and off chest pain localized to her precordium and associated with shortness of breath. Patient has multiple risk factors including diabetes mellitus, hypertension, hyperlipidemia and obesity. To rule out acute coronary syndrome patient admitted for observation. Two sets of cardiac enzymes are negative and she has nonspecific T wave changes. This morning patient undergone nuclear cardiac stress test and reportedly she has inferior and inferolateral and inferior septal fixed lesion most probably myocardial scar. recommended to keep the patient overnight, maximize her cardioprotective medications and if she is symptom-free to discharge her tomorrow and follow-up with Dr. Russ. This morning I seen patient resting in bed comfortably. She is awake, alert and oriented. She is not in pain or any form of distress. Her vital signs are within normal limits patient is stable enough to be discharged today. Physical Exam Vital Signs: Temp Pulse Resp BP Pulse Ox 97.8 F 72 16 126/70 H 100 10/28/18 07:19 10/28/18 07:19 10/28/18 07:19 10/28/18 07:19 10/28/18 07:19 Intake & Output 10/27/18 10/28/18 10/29/18 06:59 06:59 06:59 Intake Total 320 1475 Output Total 800 2300 Balance -480 -825 Weight 106.2 kg 107.9 kg Results Laboratory Results: 10/26/18 18:32 10/26/18 18:32 10/26/18 10/27/18 10/27/18 18:32 00:20 06:35 Troponin I 0.017 0.018 < 0.012 NT-Pro-B Natriuret Pep 90 10/27/18 13:50 Troponin I 0.014 NT-Pro-B Natriuret Pep Impressions: Chest/Abdomen CTA 10/26/18 00:00 IMPRESSION: 1. No acute pulmonary embolism. 2. No aortic aneurysm or dissection. Chest X-Ray 10/26/18 18:34 IMPRESSION: NO ACUTE RADIOGRAPHIC FINDING IN THE CHEST. Qualifiers - * PATIENT BEING DISCHARGED WITH ANY OF THE FOLLOWING DIAGNOSIS: No
[2018-10-28 12:53] VITALS: BP 132/65
== END 2018-10-28 13:41 | disposition home or self-care (01) ==
LOC: ER 18:10 → EH 20:03 → 4N 22:05
PROVIDERS: ADMIT Internal Medicine; ATTEND Internal Medicine
DX: R07.2 Precordial pain (principal); E78.5 Hyperlipidemia, unspecified; E11.9 Type 2 diabetes mellitus without complications; E66.01 Morbid (severe) obesity due to excess calories; R06.02 Shortness of breath; M19.90 Unspecified osteoarthritis, unspecified site; I10 Essential (primary) hypertension; K21.9 Gastro-esophageal reflux disease without esophagitis; R60.0 Localized edema; Z68.39 Body mass index [BMI] 39.0-39.9, adult; Z79.899 Other long term (current) drug therapy; Z79.4 Long term (current) use of insulin; Z82.49 Family history of ischemic heart disease and other diseases of the circulatory system
CPT/HCPCS: 93005; 99285; 36415 ×2; 82962 ×3; 83690; 84443; 85025; 80053; 81001; 84484 ×2; 83036; 80061; 83880; 93017; 71045; 78452; 71275; 93010; G0378 ×4; A9500; J2785; J3490 ×7; Q9969

== ENCOUNTER 2018-12-20 10:19 | Emergency (ER) | payer OTHER ==
[2018-12-20 10:26] VITALS: BP 126/77
[2018-12-20] MEDS ORDERED: PREDNISONE 20 MG TABLET PO ONE (10:44)
[2018-12-20] MEDS ORDERED: TRAMADOL HCL 50 MG TABLET PO ONE (10:44)
--- NOTE | 2018-12-20 10:47 | ER Document Report ---
HPI - HPI Patient complains to provider of: Left foot pain Time Seen by Provider: 12/20/18 10:36 Onset/Duration: Persistent Quality of pain: Sharp Pain Level: 5 Context: Patient presents complaining of left foot pain for the past 2 days. Patient denies any injury or fever. Patient states she has had pain like this in the past involving both the left in the right foot although not at the same time. Patient does report a strong history of gout in the family. Associated Symptoms: Other - Left foot pain. denies: Fever Exacerbated by: Standing, Movement, Walking Relieved by: Denies Similar symptoms previously: Yes Recently seen / treated by doctor: No - ROS ROS below otherwise negative: Yes Systems Reviewed and Negative: Yes All other systems reviewed and negative - CONSTITUTIONAL Constitutional: DENIES: Fever - NEURO Neurology: DENIES: Weakness - GASTROINTESTINAL Gastrointestinal: DENIES: Nausea - REPRODUCTIVE Reproductive: DENIES: : - MUSCULOSKELETAL Musculoskeletal: REPORTS: Extremity pain - Lt foot - DERM Skin Color: Normal Skin Problems: None Past Medical History - General Information source: Patient - Social History Smoking Status: Former Smoker Frequency of alcohol use: None Drug Abuse: None Occupation: None Family History: Arthritis, CAD, CVA, DM, Hyperlipidemia, Hypertension, Malignancy, Other - Gout. denies: COPD Patient has suicidal ideation: No Patient has homicidal ideation: No - Past Medical History Cardiac Medical History: Reports: Hx Hypercholesterolemia, Hx Hypertension Endocrine Medical History: Reports: Hx Diabetes Mellitus Type 2 Renal/ Medical History: Denies: Hx Peritoneal Dialysis Musculoskeletal Medical History: Reports Hx Arthritis Past Surgical History: Reports: Hx Section Vertical Provider Document - CONSTITUTIONAL Agree With Documented VS: Yes Exam Limitations: No Limitations General Appearance: WD/WN, No Apparent Distress - INFECTION CONTROL TRAVEL OUTSIDE OF THE [place] IN LAST 30 DAYS: No - HEENT HEENT: Atraumatic, Normocephalic - NECK Neck: Normal Inspection - RESPIRATORY Respiratory: Breath Sounds Normal, No Respiratory Distress - CARDIOVASCULAR Cardiovascular: Regular Rate, Regular Rhythm Pulses: Normal: Dorsalis pedis - BACK Back: Normal Inspection - MUSCULOSKELETAL/EXTREMETIES Musculoskeletal/Extremeties: MAEW, FROM, Tender - Tenderness to left midfoot area, 1+ edema, no deformity, normal skin color. - NEURO Level of Consciousness: Awake, Alert, Appropriate - DERM Integumentary: Warm, Dry Course - Re-evaluation Re-evalutation: 12/20/18 10:45 Patient reports a history of having pain in her feet off and on over the past couple years. Patient does report a strong family history of gout. Patient presents with symptoms worrisome for gout. No concern for cellulitis at this time as patient does not have any fever or erythema to the foot. Patient with exquisite tenderness with very light palpation of the foot. Patient denies any trauma. Patient agreeable with deferring any x-rays at this time. - Vital Signs Vital signs: Temp Pulse Resp BP Pulse Ox 98.0 F 75 15 126/77 H 98 12/20/18 10:24 12/20/18 10:24 12/20/18 10:24 12/20/18 10:24 12/20/18 10:24 Discharge - Discharge Clinical Impression: Gout attack Qualifiers: Gout site: foot Gout etiology: unspecified cause Laterality: left Qualified Code(s): M10.9 - Gout, unspecified Condition: Stable Disposition: HOME, SELF-CARE Instructions: Gout ([facility]), Gout Diet ([facility]), Steroid Medication Additional Instructions: Return immediately for any new or worsening symptoms Followup with your primary care provider, call tomorrow to make a followup appointment Weightbearing as tolerated Prescriptions: Prednisone [Deltasone 20 mg Tablet] 2 tab PO DAILY 5 Days tablet Tramadol HCl [Ultram 50 mg Tablet] 50 mg PO ASDIR PRN #20 tablet PRN Reason: Referrals: [facility] [NO LOCAL MD] - Follow up as needed
== END 2018-12-20 11:08 | disposition home or self-care (01) ==
LOC: ER 10:19
DX: M10.9 Gout, unspecified (principal); M79.672 Pain in left foot; E78.00 Pure hypercholesterolemia, unspecified; I10 Essential (primary) hypertension; E11.9 Type 2 diabetes mellitus without complications
CPT/HCPCS: 99283

== ENCOUNTER 2019-02-18 19:57 | Observation (INO) | payer OTHER ==
[2019-02-18 21:11] LABS: ABSOLUTE BASOPHILS # (AUTO) 0.1 10^3/uL (0.0-0.2); ABSOLUTE EOSINOPHILS # (AUTO) 0.4 10^3/uL (0.0-0.6); ABSOLUTE LYMPHOCYTES (AUTO) 1.4 10^3/uL (0.5-4.7); ABSOLUTE MONOCYTES (AUTO) 0.4 10^3/uL (0.1-1.4); ABSOLUTE NEUT (AUTO) 6.1 10^3/uL (1.7-8.2); BASOPHILS % (AUTO) 0.7 % (0-2); EOSINOPHILS % (AUTO) 4.8 % (0-6); HEMATOCRIT 36.5 % (36.0-47.0); HEMOGLOBIN 12.3 g/dL (12.0-15.5); LYMPHOCYTES % (AUTO) 16.4 % (13-45); MEAN CORPUSCULAR HEMOGLOBIN 28.8 pg (27.0-33.4); MEAN CORPUSCULAR HGB CONC 33.7 g/dL (32.0-36.0); MEAN CORPUSCULAR VOLUME 85 fl (80-97); MONOCYTES % (AUTO) 4.3 % (3-13); PLATELET COUNT 201 10^3/uL (150-450); RED BLOOD COUNT 4.28 10^6/uL (3.72-5.28); RED CELL DISTRIBUTION WIDTH 15.9 % (11.5-14.0); SEGMENTED NEUTROPHILS % (AUTO) 73.8 % (42-78); TOTAL CELLS COUNTED % (AUTO) 100 %; WHITE BLOOD COUNT 8.3 10^3/uL (4.0-10.5)
[2019-02-18 21:18] LABS: INTERNATIONAL RATION (INR) 0.93; PROTHROMBIN TIME 12.9 SEC (11.4-15.4)
[2019-02-18 21:19] LABS: PARTIAL THROMBOPLASTIN TIME 33.6 SEC (23.5-35.8)
--- NOTE | 2019-02-18 22:20 | ER Document Report ---
ED General - General Chief Complaint: Chest Pain Stated Complaint: CHEST PAIN Time Seen by Provider: 02/18/19 20:55 Notes: Patient is a 58-year-old female with past medical history of coronary artery disease with [address], hypertension, hyperlipidemia, morbid obesity, presents with concerns of exertional chest pain or shortness of breath. Patient states that for the past 36 hours each time she tries to exert herself she began to feel a burning, throbbing, constant discomfort in her chest that resolves when she rests. Regards symptoms as being moderate to severe in intensity. She states that she also feels quite short of breath during these episodes. States that the symptoms feel very similar to when she was hospitalized in October and subsequently found to have coronary artery disease. Patient has not contacted her combination worker Dr. Lopez regarding this issue. Denies any current pain or shortness of breath at time of my evaluation. TRAVEL OUTSIDE OF THE [place] IN LAST 30 DAYS: No - Related Data Allergies/Adverse Reactions: No Known Allergies Allergy (Verified 12/20/18 10:20) Past Medical History - General Information source: Patient - Social History Smoking Status: Never Smoker Chew tobacco use (# tins/day): No Frequency of alcohol use: None Drug Abuse: None Lives with: Spouse/Significant other Family History: Arthritis, CAD, CVA, DM, Hyperlipidemia, Hypertension, Malignancy, Other - Gout. denies: COPD Patient has suicidal ideation: No Patient has homicidal ideation: No - Past Medical History Cardiac Medical History: Reports: Hx Hypercholesterolemia, Hx Hypertension Denies: Hx Atrial Fibrillation, Hx Congestive Heart Failure, Hx Coronary Artery Disease, Hx DVT, Hx Heart Attack, Hx Peripheral Vascular Disease, Hx Pulmonary Embolism, Hx Heart Murmur Endocrine Medical History: Reports: Hx Diabetes Mellitus Type 2 Renal/ Medical History: Denies: Hx Peritoneal Dialysis Musculoskeletal Medical History: Reports Hx Arthritis Past Surgical History: Reports: Hx Cardiac Surgery - November 2018, Hx Section Review of Systems - Review of Systems Notes: Constitutional: Negative for fever. HENT: Negative for sore throat. Eyes: Negative for visual changes. Cardiovascular: Positive for chest pain. Respiratory: Positive for shortness of breath. Gastrointestinal: Negative for abdominal pain, vomiting or diarrhea. Genitourinary: Negative for dysuria. Musculoskeletal: Negative for back pain. Skin: Negative for rash. Neurological: Negative for headaches, weakness or numbness. 10 point ROS negative except as marked above and in HPI. Physical Exam - Vital signs Vitals: Temp Pulse Resp BP Pulse Ox 98.2 F 58 L 24 H 183/76 H 100 02/18/19 20:14 02/18/19 20:14 02/18/19 20:14 02/18/19 20:14 02/18/19 20:14 Interpretation: Hypertensive Notes: PHYSICAL EXAMINATION: GENERAL: Well-appearing, well-nourished and in no acute distress. HEAD: Atraumatic, normocephalic. EYES: Pupils equal round and reactive to light, extraocular movements intact, sclera anicteric, conjunctiva are normal. ENT: nares patent, oropharynx clear without exudates. Moist mucous membranes. NECK: Normal range of motion, supple without lymphadenopathy LUNGS: Breath sounds clear to auscultation bilaterally and equal. No wheezes rales or rhonchi. HEART: Regular rate and rhythm without murmurs ABDOMEN: Soft, morbidly obese abdomen, nontender, normoactive bowel sounds. No guarding, no rebound. No masses appreciated. EXTREMITIES: Normal range of motion, 2+ pitting edema in the bilateral lower extremities that is equal and symmetric, no cyanosis. NEUROLOGICAL: No focal neurological deficits. Moves all extremities spontaneously and on command. PSYCH: Normal mood, normal affect. SKIN: Warm, Dry, normal turgor, no rashes or lesions noted. Course - Re-evaluation Re-evalutation: 02/18/19 22:19 Patient presents with exertional chest pain and shortness of breath has been ongoing for the past 36 hours. Patient recently had a cardiac catheterization with 2 stents placed as well as a lesion that was unable to be intervened upon secondary location. Although the chest pain characterization is atypical this is similar to when I admitted the patient last time and she was found to have coronary artery disease. EKG without acute ischemic changes. Labs are pending. She is quite high risk, heart score is 5 based on history, age, characte rization of symptoms. 02/18/19 23:49 Troponin negative. Patient remains chest pain-free at rest. Discussed with Dr. Vora who is accepted the patient for observation. - Vital Signs Vital signs: Temp Pulse Resp BP Pulse Ox 97.9 F 56 L 21 H 155/72 H 100 02/19/19 01:37 02/19/19 01:37 02/19/19 01:37 02/19/19 01:37 02/19/19 01:37 - Laboratory Result Diagrams: 02/19/19 03:45 02/18/19 21:43 Laboratory results interpreted by me: 02/18/19 02/18/19 20:40 21:43 RDW 15.9 H Chloride 111 H Est GFR (Non-Af Amer) 53 L Glucose 124 H - Diagnostic Test Radiology reviewed: Image reviewed, Reports reviewed Radiology results interpreted by me: 02/18/19 23:49 Chest x-ray: No acute infiltrate or pneumothorax - EKG Interpretation by Me Additional EKG results interpreted by me: 02/18/19 22:20 Sinus arrhythmia, varying rate between [address] elevations or depressions. LVH. Discharge - Discharge Clinical Impression: Exertional chest pain Coronary artery disease Qualifiers: Coronary Disease-Associated Artery/Lesion type: [place] artery [place] vs. transplanted heart: [place] heart Associated angina: with unstable angina Qualified Code(s): I25.110 - Atherosclerotic heart disease of [place] coronary artery with unstable angina pectoris Condition: Fair Disposition: ADMITTED OBSERVATION Admitting Provider: Diony (Hospitalist) Unit Admitted: Telemetry
--- NOTE | 2019-02-18 22:20 | RADIOLOGY REPORT (SQ) ---
XR CHEST 1 VIEW HISTORY: Chest pain. COMPARISON: None. FINDINGS: The heart size is enlarged. No consolidation, pleural effusion, or pneumothorax is seen. There are no acute bony findings. IMPRESSION: No evidence of acute cardiopulmonary disease.
[2019-02-18 22:35] LABS: ANION GAP 7 (5-19); BLOOD UREA NITROGEN 15 mg/dL (7-20); CARBON DIOXIDE 26 mmol/L (22-30); CHLORIDE 111 mmol/L (98-107); GLUCOSE 124 mg/dL (75-110); POTASSIUM 3.9 mmol/L (3.6-5.0); SODIUM 143.7 mmol/L (137-145)
[2019-02-18] MEDS ORDERED: NITROGLYCERIN 0.4 MG/TAB 25 TAB/BOTTLE SL PRN (23:10)
[2019-02-18] MEDS ORDERED: ASPIRIN 81 MG TABLET, CHEWABLE PO ONE (23:10)
[2019-02-19] MEDS ORDERED: ONDANSETRON HCL INJ/PF 4 MG/2 ML SDV IV PRN (00:37)
[2019-02-19] MEDS ORDERED: ZOLPIDEM TARTRATE 5 MG TABLET PO PRN (00:37)
[2019-02-19] MEDS ORDERED: MAG HYDROX/AL HYDROX/SIMETH SUSP 30 ML UDCUP PO PRN (00:37)
[2019-02-19] MEDS ORDERED: MAGNESIUM HYDROXIDE SUSP 30 ML UDCUP PO PRN (00:37)
[2019-02-19] MEDS ORDERED: MORPHINE SULFATE 10 MG/ML INJ IV PRN (00:47)
[2019-02-19] MEDS ORDERED: ACETAMINOPHEN 325 MG TABLET PO PRN (00:47)
[2019-02-19] MEDS ORDERED: INSULIN REG, HUMAN 100 UNIT/ML 3 ML VIAL (PYX) SUBCUT PRN (00:47)
[2019-02-19] MEDS ORDERED: HYDRALAZINE HCL INJ/PF 20 MG/1 ML SDV IV PRN (00:47)
[2019-02-19] MEDS ORDERED: GLUCAGON,HUMAN RECOMB 1 MG INJ IM PRN (00:48)
[2019-02-19] MEDS ORDERED: DEXTROSE 40% GEL 15 GM TUBE PO PRN ×2 (00:48)
[2019-02-19] MEDS ORDERED: DEXTROSE 50%-WATER 25 GM/50 ML DISP.SYRIN IV PRN ×2 (00:48)
[2019-02-19] MEDS ORDERED: TRAMADOL HCL 50 MG TABLET PO PRN (00:51)
[2019-02-19] MEDS: NITROGLYCERIN 2% OINTMENT 1 GM PACKET TP SCH ×3 (01:07→14:34)
[2019-02-19 01:46] VITALS: BP 155/72
[2019-02-19 04:07] LABS: HEMATOCRIT 33.4 % (36.0-47.0); HEMOGLOBIN 11.4 g/dL (12.0-15.5); MEAN CORPUSCULAR HEMOGLOBIN 28.9 pg (27.0-33.4); MEAN CORPUSCULAR VOLUME 85 fl (80-97); PLATELET COUNT 170 10^3/uL (150-450); RED BLOOD COUNT 3.93 10^6/uL (3.72-5.28); RED CELL DISTRIBUTION WIDTH 15.8 % (11.5-14.0); WHITE BLOOD COUNT 6.7 10^3/uL (4.0-10.5)
[2019-02-19 04:28] LABS: ANION GAP 6 (5-19); BLOOD UREA NITROGEN 14 mg/dL (7-20); CARBON DIOXIDE 27 mmol/L (22-30); CHLORIDE 111 mmol/L (98-107); CREATINE KINASE 96 U/L (30-135); GLUCOSE 109 mg/dL (75-110); POTASSIUM 4.1 mmol/L (3.6-5.0); SODIUM 144.3 mmol/L (137-145)
[2019-02-19 04:36] LABS: TROPONIN I < 0.012 ng/mL
--- NOTE | 2019-02-19 07:30 | PDOC H&P ---
History of Present Illness Admission Date/PCP: 02/18/2019 23:22 [facility] Patient complains of: Chest pain History of Present Illness: DG SIMMONS is a 58 year old female who presented to the emergency room with a 36-hour history of chest pain. Patient admits that she has been having chest pain with exertion for the last 36 hours. Her pain will resolve while she is at rest but with even slight exertion she develops pain again and it persists as long as she continues exertion and gradually resolves as soon as she rests. She describes the pain as a burning heaviness in the center of her chest, without radiation. The pain is accompanied by dyspnea. She admits that this pain is very similar to the pain she had in October of this year when she had a positive stress test and she was found to have coronary artery disease by heart catheterization and 2 stents were placed, however 1 of her coronary arteries was not amenable to stent placement or surgery and maximal medical therapy was recommended. She has not identified any additional aggravating or ameliorating factors for her chest pain. In the emergency room she was found to have initially a negative cardiac enzymes and her EKG did not suggest any evidence of acute myocardial ischemia or injury. Patient was subsequently admitted for further evaluation and treatment. Past Medical History Cardiac Medical History: Reports: Coronary Artery Disease, Hyperlipidema, Hy pertension Denies: Atrial Fibrillation, Congestive Heart Failure, DVT, Myocardial Infarction, Peripheral Vascular Disease, Pulmonary Embolism, Heart Murmur Pulmonary Medical History: Denies: Asthma, Chronic Obstructive Pulmonary Disease (COPD) EENT Medical History: Denies: Cataracts, Ears - Hearing aids Neurological Medical History: Denies: Hemorrhagic CVA, Ischemic CVA, Seizures Endocrine Medical History: Reports: Diabetes Mellitus Type 2 Denies: Diabetes Mellitus Type 1, Hyperthyroidism, Hypothyroidism Renal/ Medical History: Denies: Chronic Kidney Disease, Nephrolithiasis Malignancy Medical History: Reports: None GI Medical History: Denies: Cirrhosis, Hepatitis Musculoskeltal Medical History: Reports: Arthritis Denies: Gout Skin Medical History: Denies: Eczema, Psoriasis Psychiatric Medical History: Denies: Alcohol Dependency, Substance Abuse, Tobacco Dependency Traumatic Medical History: Reports: None Hematology: Denies: Anemia, Bleeding Tendencies Infectious Medical History: Reports: None Past Surgical History Past Surgical History: Reports: Cardiac Catheterization, Section, Coronary Stent - X2 Social History Information Source: Patient Lives with: Spouse/Significant other Smoking Status: Never Smoker Frequency of Alcohol Use: None Hx Recreational Drug Use: No Drugs: None Hx Prescription Drug Abuse: No - Advance Directive Resuscitation Status: Full Code Surrogate healthcare decision maker:: Javi Simmons Family History Family History: Arthritis, CAD, CVA, DM, Hyperlipidemia, Hypertension, Malignancy, Other - Gout. denies: COPD Parental Family History Reviewed: Yes Children Family History Reviewed: No Sibling(s) Family History Reviewed.: Yes Medication/Allergy Home Medications: Amlodipine Besylate [Norvasc 5 mg Tablet] 5 mg PO DAILY 10/27/18 Atorvastatin Calcium [Lipitor 80 mg Tablet] 80 mg PO DAILY 10/27/18 Insulin Aspart [Novolog Flexpen] 20 unit SUBCUT MEALS 10/27/18 Insulin Glargine,Hum.rec.anlog [Lantus Insulin 100 Unit/mL Insulin Pen] 55 unit SUBCUT BID 10/27/18 Lisinopril/Hydrochlorothiazide [Lisinopril-Hctz 20-25 mg Tab] 1 each PO DAILY 10/27/18 Metformin HCl [Metformin HCl ER] 1,000 mg PO BID 10/27/18 Carvedilol [Coreg 12.5 mg Tablet] 12.5 mg PO Q12 #60 tablet 10/28/18 Prednisone [Deltasone 20 mg Tablet] 2 tab PO DAILY 5 Days tablet 12/20/18 Tramadol HCl [Ultram 50 mg Tablet] 50 mg PO ASDIR PRN #20 tablet 12/20/18 Allergies/Adverse Reactions: No Known Allergies Allergy (Verified 12/20/18 10:20) Review of Systems Constitutional: ABSENT: chills, fever(s) Eyes: ABSENT: visual disturbances, other - Eye pain Ears: ABSENT: hearing changes, other - Ear pain Nose, Mouth, and Throat: ABSENT: mouth pain, sore throat Cardiovascular: PRESENT: as per HPI, chest pain, dyspnea on exertion. ABSENT: edema, orthropnea, palpitations Respiratory: ABSENT: cough, dyspnea Gastrointestinal: ABSENT: abdominal pain, constipation, diarrhea, nausea, vomiting Genitourinary: ABSENT: dysuria, hematuria Musculoskeletal: ABSENT: joint swelling, muscle weakness Integumentary: ABSENT: pruritus, rash Neurological: ABSENT: confusion, convulsions, focal weakness, memory loss, syncope Psychiatric: ABSENT: anxiety, depression Endocrine: ABSENT: cold intolerance, heat intolerance Hematologic/Lymphatic: ABSENT: easy bleeding, easy bruising Physical Exam Vital Signs: Temp Pulse Resp BP Pulse Ox 98.2 F 58 L 20 164/77 H 99 02/18/19 20:14 02/18/19 20:14 02/18/19 23:01 02/18/19 23:01 02/18/19 23:01 Intake & Output 02/16/19 02/17/19 02/18/19 23:59 23:59 23:59 Weight 110 kg General appearance: PRESENT: no acute distress, cooperative Head exam: PRESENT: atraumatic, normocephalic Eye exam: ABSENT: conjunctival injection, scleral icterus Ear exam: PRESENT: normal external ear exam. ABSENT: bleeding, drainage Mouth exam: PRESENT: dry mucosa, neck supple Neck exam: ABSENT: thyromegaly, tracheal deviation Respiratory exam: PRESENT: clear to auscultation [place], symmetrical, unlabored Cardiovascular exam: PRESENT: RRR. ABSENT: clicks, gallop, rubs Pulses: PRESENT: normal radial pulses, normal dorsalis pedis pul Vascular exam: PRESENT: normal capillary refill. ABSENT: pallor GI/Abdominal exam: PRESENT: normal bowel sounds, soft Rectal exam: PRESENT: deferred Extremities exam: ABSENT: joint swelling, pedal edema Musculoskeletal exam: ABSENT: deformity, dislocation Neurological exam: PRESENT: alert, oriented to person, oriented to place, oriented to time, oriented to situation, CN II-XII grossly intact. ABSENT: motor sensory deficit Psychiatric exam: PRESENT: appropriate affect, normal mood Skin exam: PRESENT: dry, intact, warm. ABSENT: jaundice, rash, urticaria Results Laboratory Results: 02/18/19 20:40 02/18/19 21:43 02/18/19 02/18/19 02/18/19 20:40 20:40 21:43 WBC 8.3 RBC 4.28 Hgb 12.3 Hct 36.5 MCV 85 MCH 28.8 MCHC 33.7 RDW 15.9 H Plt Count 201 Seg Neutrophils % 73.8 Lymphocytes % 16.4 Monocytes % 4.3 Eosinophils % 4.8 Basophils % 0.7 Absolute Neutrophils 6.1 Absolute Lymphocytes 1.4 Absolute Monocytes 0.4 Absolute Eosinophils 0.4 Absolute Basophils 0.1 Sodium Cancelled 143.7 Potassium Cancelled 3.9 Chloride Cancelled 111 H Carbon Dioxide Cancelled 26 Anion Gap Cancelled 7 BUN Cancelled 15 Creatinine Cancelled 1.06 Est GFR ( Amer) Cancelled > 60 Est GFR (Non-Af Amer) Cancelled 53 L Glucose Cancelled 124 H Calcium Cancelled 9.0 02/18/19 02/18/19 20:40 21:43 Troponin I Cancelled < 0.012 Impressions: Chest X-Ray 02/18/19 20:55 IMPRESSION: No evidence of acute cardiopulmonary disease. Assessment and Plan - Diagnosis (1) Exertional chest pain Is this a current diagnosis for this admission?: Yes Plan: Patient will be admitted for serial cardiac enzyme and EKG evaluations. Consultation with Dr. Russ will be obtained to aid in the evaluation and treatment of the patient's unstable angina. Serial laboratory will be performed in the form of a CBC, magnesium level and basic metabolic profile on a daily basis as part of her ongoing evaluation for chest pain and coronary artery disease. (2) Coronary artery disease Qualifiers: Coronary Disease-Associated Artery/Lesion type: [place] artery [place] vs. transplanted heart: [place] heart Associated angina: with unstable angina Qualified Code(s): I25.110 - Atherosclerotic heart disease of [place] coronary artery with unstable angina pectoris Is this a current diagnosis for this admission?: Yes Plan: Patient will have serial cardiac enzymes and EKG determinations. Dr. Russ will be consulted to evaluate the patient for treatment of her unstable angina in light of her known coronary artery disease. (3) Hypertension Qualifiers: Hypertension type: essential hypertension Qualified Code(s): I10 - Essential (primary) hypertension Is this a current diagnosis for this admission?: Yes Plan: Patient will be maintained on her current antihypertensive therapy and her vital signs were monitored closely through her hospital course. Changes to therapy may be necessitated in order to better treat her unstable angina. (4) Hyperlipidemia Qualifiers: Hyperlipidemia type: unspecified Qualified Code(s): E78.5 - Hyperlipidemia, unspecified Is this a current diagnosis for this admission?: Yes Plan: Patient will be continued on her current statin therapy. Her lipid profile was assessed recently and showed excellent control, thus there would be no need to repeat that study at this time. (5) Diabetes mellitus type 2 in obese Is this a current diagnosis for this admission?: Yes Plan: Patient will be continued on her usual diabetic regiment and diabetic diet. Hemoglobin A1c will be assessed to evaluate her current therapy. - Time Time Spent with patient: 25-34 minutes Medications reviewed and adjusted accordingly: Yes Anticipated discharge: Home - Inpatient Certification Based on my medical assessment, after consideration of the patient's comorbidities, presenting symptoms, or acuity I expect that the services needed warrant INPATIENT care.: Yes I certify that my determination is in accordance with my understanding of Medicare's requirements for reasonable and necessary INPATIENT services [42 CFR 412.3e].: Yes Medical Necessity: Significant Comorbidiites Make Outpatient Treatment Too Risky, Need Close Monitoring Due to Risk of Patient Decompensation, Need For Continuous Telemetry Monitoring, Need for Pain Control, Risk of Complication if Not Cared For in Hospital
--- NOTE | 2019-02-19 07:41 | EKG REPORT ---
SEVERITY:- ABNORMAL ECG - SINUS ARRHYTHMIA, RATE 59-89 LEFT VENTRICULAR HYPERTROPHY : Confirmed by: Suman Stokes MD 19-Feb-2019 07:40:21
[2019-02-19] MEDS ORDERED: FONDAPARINUX SODIUM INJ 2.5 MG/0.5 ML DISP.SYRIN SUBCUT SCH (08:00)
[2019-02-19] MEDS: INSULIN LISPRO 100 UNIT/ML 3 ML VIAL SUBCUT SCH ×2 (08:23→14:20)
[2019-02-19] MEDS ORDERED: CARVEDILOL 12.5 MG TABLET PO SCH (10:00)
[2019-02-19] MEDS ORDERED: AMLODIPINE BESYLATE 5 MG TABLET PO SCH (10:00)
[2019-02-19] MEDS ORDERED: HYDROCHLOROTHIAZIDE 25 MG TABLET PO SCH (10:00)
[2019-02-19] MEDS ORDERED: DOCUSATE SODIUM 100 MG CAPSULE PO SCH (10:00)
[2019-02-19] MEDS ORDERED: INSULIN GLARGINE,HUM.REC.ANLOG 1,000 UNIT/10 ML VIAL SUBCUT SCH (10:00)
[2019-02-19] MEDS ORDERED: ATORVASTATIN CALCIUM 80 MG TABLET PO SCH (10:00)
[2019-02-19] MEDS ORDERED: FAMOTIDINE 20 MG TABLET PO SCH (10:00)
[2019-02-19] MEDS ORDERED: METFORMIN HCL 500 MG TABLET PO SCH (10:00)
[2019-02-19] MEDS ORDERED: LISINOPRIL 10 MG TABLET PO SCH (10:00)
[2019-02-19 11:15] LABS: CREATINE KINASE MB 0.78 ng/mL (<4.55)
[2019-02-19 11:16] LABS: TROPONIN I < 0.012 ng/mL
[2019-02-19] MEDS ORDERED: CLOPIDOGREL BISULFATE 75 MG TABLET PO SCH (13:00)
--- NOTE | 2019-02-19 13:26 | PDOC TRANSFER SUMMARY ---
General Admission Date/PCP: 02/19/19 00:00 Resuscitation Status: Full Code - Transfer Diagnosis (1) Chest pain Is this a current diagnosis for this admission?: Yes Diagnosis Summary: Patient will be admitted for serial cardiac enzyme and EKG evaluations. Consultation with Dr. Russ will be obtained to aid in the evaluation and treatment of the patient's unstable angina. Serial laboratory will be performed in the form of a CBC, magnesium level and basic metabolic profile on a daily basis as part of her ongoing evaluation for chest pain and coronary artery disease. 02/[id number]-old female with history of hypertension, hyperlipidemia coronary artery disease status post 2 stents placements in November at [facility] came to the emergency room last night with complaints of exertional chest pain. The cardiac enzymes and EKGs are negative for [place]. Patient continued to have chest pains in the emergency room is stopped with Nitropaste. This morning patient is complaining of pain scale of 2 x 10 with minimal activity. I spoke to Dr. llamas at [facility] he agreed to take the patient up there when the bed is available. And is presently on aspirin, Plavix, Lovenox. She is also on supplemental oxygen, and on IV morphine 2 mg every 2 PRN for chest pain. Patient is also receiving atorvastatin 80 mg p.o. nightly. (2) Coronary artery disease Is this a current diagnosis for this admission?: Yes Diagnosis Summary: Patient will have serial cardiac enzymes and EKG determinations. Dr. Russ will be consulted to evaluate the patient for treatment of her unstable angina in light of her known coronary artery disease. 02/19/2019-patient has history of coronary artery disease under 2 stents plac ement in November at [facility] this year. Came in last night with chest pains Dr. Carias insurance salesman here requested me to talk to Dr. Boston Lopez ( patient's primary insurance salesman) and Dr johnson told me to get in touch with [facility] to transfer the pt , and I spoke to Dr. LLAMAS and he agreed to take the patient for further management. (3) Hypertension Is this a current diagnosis for this admission?: Yes Diagnosis Summary: Patient will be maintained on her current antihypertensive therapy and her vital signs were monitored closely through her hospital course. Changes to therapy may be necessitated in order to better treat her unstable angina. 02/19/2019-patient latest blood pressure today is 155/72. Systolic blood pressure is borderline high. Currently on Coreg 12.5 mg p.o. twice daily, amlodipine 5 mg p.o. daily, lisinopril 20 mg p.o. daily. Plan is to continue the present management. (4) Diabetes mellitus type 2 in obese Is this a current diagnosis for this admission?: Yes Diagnosis Summary: Patient will be continued on her usual diabetic regiment and diabetic diet. Hemoglobin A1c will be assessed to evaluate her current therapy. 02/19/2019-patient has history of type 2 diabetes mellitus the latest blood sugar is 99 and hemoglobin A1c 7.4. Presently on diabetic diet and insulin sliding scale before meals and at bedtime. She is also receiving Lantus 55 units twice a day and lispro 20 units prior to meals. (5) Obesity (BMI 35.0-39.9 without comorbidity) Is this a current diagnosis for this admission?: No Diagnosis Summary: 02/19/2019-patient's BMI is 36 diet exercise weight loss and lifestyle modifications are discussed with the patient dietary consult was requested during the hospital stay. - Transfer Medications Home Medications: Amlodipine Besylate [Norvasc 5 mg Tablet] 5 mg PO DAILY 02/19/19 Aspirin [Ecotrin 81 mg EC Tablet] 81 mg PO DAILY 02/19/19 Atorvastatin Calcium [Lipitor 80 mg Tablet] 80 mg PO QHS 02/19/19 Clopidogrel Bisulfate [Plavix 75 mg Tablet] 75 mg PO DAILY 02/19/19 Famotidine [Pepcid 20 mg Tablet] 20 mg PO BID 02/19/19 Insulin Aspart [Novolog Insulin 100 Unit/1 ml 10 ml] 0 unit SUBCUT .SLD SCALE 02/19/19 Isosorbide Mononitrate [Imdur 30 mg Tablet.er] 15 mg PO QHS 02/19/19 Lisinopril/Hydrochlorothiazide [Lisinopril-Hctz 20-25 mg Tab] 1 each PO DAILY 02/19/19 Nitroglycerin [Nitrostat 0.4 mg (1/150 Gr) Tabs 25/Bottle] 1 tab SL Q5MP PRN 02/19/19 Ranitidine HCl [Zantac 150 mg Tablet] 150 mg PO BID 02/19/19 Transfer Medications: Current Medications Acetaminophen (Tylenol 325 Mg Tablet) 650 mg PO Q4HP PRN PRN Reason: For headache, pain or fever Stop: 03/21/19 00:46 Last Admin: 02/19/19 08:16 Dose: 650 mg Documented by: Al Hydrox/Mg Hydrox/Simethicone (Maalox Plus Susp 30 Udcup) 30 ml PO Q6HP PRN PRN Reason: HEARTBURN Stop: 03/21/19 00:36 Amlodipine Besylate (Norvasc 5 Mg Tablet) 5 mg PO DAILY [facility] Stop: 03/21/19 09:59 Last Admin: 02/19/19 10:53 Dose: 5 mg Documented by: Atorvastatin Calcium (Lipitor 80 Mg Tablet) 80 mg PO DAILY [facility] Stop: 03/21/19 09:59 Last Admin: 02/19/19 10:53 Dose: 80 mg Documented by: Carvedilol (Coreg 12.5 Mg Tablet) 12.5 mg PO Q12 [place] Stop: 03/21/19 09:59 Last Admin: 02/19/19 10:52 Dose: 12.5 mg Documented by: Clopidogrel Bisulfate (Plavix 75 Mg Tablet) 75 mg PO DAILY [facility] Stop: 03/21/19 12:59 Dextrose (Dextrose Inj 50% Syringe (25 Gm/50 Ml)) 12.5 gm IV PRN PRN; Protocol PRN Reason: FOR BG 50-69 IN ALERT PATIENT Stop: 03/21/19 00:47 Dextrose (Dextrose Inj 50% Syringe (25 Gm/50 Ml)) 25 gm IV PRN PRN; Protocol PRN Reason: PER PROTOCOL Stop: 03/21/19 00:47 Docusate Sodium (Colace 100 Mg Capsule) 100 mg PO BID [facility] Stop: 03/21/19 09:59 Last Admin: 02/19/19 10:53 Dose: 100 mg Documented by: Enoxaparin Sodium (Lovenox Inj 40 Mg/0.4 Ml Disp.Syrin) 40 mg SUBCUT DAILY [facility] Stop: 03/22/19 09:59 Famotidine (Pepcid 20 Mg Tablet) 20 mg PO Q12 [facility] Stop: 03/21/19 09:59 Last Admin: 02/19/19 10:53 Dose: 20 mg Documented by: Glucagon (Glucagen Inj 1 Mg Vial) 1 mg IM PRN PRN; Protocol PRN Reason: Evaluate for BG < 70 Stop: 03/21/19 00:47 Glucose (Glutose 40% Gel 15 Gm Tube) 15 gm PO PRN PRN; Protocol PRN Reason: FOR BG 50-69 IN ALERT PATIENT Stop: 03/21/19 00:47 Glucose (Glutose 40% Gel 15 Gm Tube) 30 gm PO PRN PRN; Protocol PRN Reason: FOR BG < 50 IN ALERT PATIENT Stop: 03/21/19 00:47 Hydralazine HCl (Apresoline Inj/Pf 20 Mg/1 Ml Sdv) 20 mg IV Q4HP PRN PRN Reason: Give For Sbp > 160 / Dbp > 100 Stop: 03/21/19 00:46 Hydrochlorothiazide (Hydrodiuril 25 Mg Tablet) 25 mg PO DAILY [facility] Stop: 03/21/19 09:59 Last Admin: 02/19/19 10:53 Dose: 25 mg Documented by: Insulin Glargine (Lantus Insulin 100 Unit/1 Ml 10 Ml) 55 unit SUBCUT Q12 [facility] Stop: 03/21/19 09:59 Last Admin: 02/19/19 11:24 Dose: 55 unit Documented by: Insulin Human Lispro (Humalog Insulin 100 Unit/1 Ml 3 Ml Vial) 20 unit SUBCUT MEALS [facility] Stop: 03/21/19 07:59 Last Admin: 02/19/19 08:23 Dose: Not Given Documented by: Insulin Human Regular (Humulin R (Pyxis) Insulin 100 Unit/Ml 3ml) 0 - 15 unit SUBCUT ACHSP PRN; Protocol PRN Reason: PER PROTOCOL Stop: 03/21/19 00:46 Lisinopril (Prinivil 10 Mg Tablet) 20 mg PO DAILY [facility] Stop: 03/21/19 09:59 Last Admin: 02/19/19 10:53 Dose: 20 mg Documented by: Magnesium Hydroxide (Milk Of Magnesia 30 Ml Udcup) 30 ml PO HSP PRN PRN Reason: FOR CONSTIPATION Stop: 03/21/19 00:36 Morphine Sulfate (Morphine 10 Mg/Ml Inj) 0 mg IV Q2HP PRN; Protocol PRN Reason: Pain Per [facility] 5 point scale SD Stop: 02/26/19 00:46 Nitroglycerin (Nitrol 2% Ointment 1gm Packet) 1 gm TP Q6 [facility] Stop: 03/21/19 00:59 Last Admin: 02/19/19 05:40 Dose: 1 gm Documented by: Ondansetron HCl (Zofran Inj/Pf 4 Mg/2 Ml Sdv) 4 mg IV Q4HP PRN PRN Reason: FOR NAUSEA/VOMITING Stop: 03/21/19 00:36 Sodium Chloride (Saline Flush 2.5 Ml Monoject Prefil Syrin) 2.5 ml IV Q8 [facility] Stop: 03/21/19 05:59 Last Admin: 02/19/19 05:45 Dose: 2.5 ml Documented by: Tramadol HCl (Ultram 50 Mg Tablet) 50 mg PO Q6HP PRN PRN Reason: FOR PAIN Stop: 02/26/19 00:50 Zolpidem Tartrate (Ambien 5 Mg Tablet) 10 mg PO HSP PRN PRN Reason: SLEEP OR INSOMNIA Stop: 02/26/19 00:36 - Allergies Allergies/Adverse Reactions: No Known Allergies Allergy (Verified 12/20/18 10:20) Hospital Course Hospital Course: 58 year old female who presented to the emergency room with a 36-hour history of chest pain. Patient admits that she has been having chest pain with exertion for the last 36 hours. Her pain will resolve while she is at rest but with even slight exertion she develops pain again and it persists as long as she continues exertion and gradually resolves as soon as she rests. She describes the pain as a burning heaviness in the center of her chest, without radiation. The pain is accompanied by dyspnea. She admits that this pain is very similar to the pain she had in October of this year when she had a positive stress test and she was found to have coronary artery disease by heart catheterization and 2 stents were placed, however 1 of her coronary arteries was not amenable to stent placement or surgery and maximal medical therapy was recommended. She has not identified any additional aggravating or ameliorating factors for her chest pain. In the emergency room she was found to have initially a negative cardiac enzymes and her EKG did not suggest any evidence of acute myocardial ischemia or injury. Patient was subsequently admitted for further evaluation and treatment. 02/19/[id number]-htcz-old female with history of morbid obesity, diabetes mellitus hypertension, hyper lipidemia, coronary artery disease with 2 stent placements admitted with chest pain. Cardiac enzymes are negative EKGs are negative patient is continued to have mild chest pain on minimal activity and she is on Nitropaste. I discussed the case with Dr. llamas in [facility] he agreed to take the patient there. Physical Exam Vital Signs: Temp Pulse Resp BP Pulse Ox 97.9 F 66 21 H 155/72 H 100 02/19/19 01:37 02/19/19 07:00 02/19/19 01:37 02/19/19 01:37 02/19/19 01:37 Intake & Output 02/18/19 02/19/19 02/20/19 06:59 06:59 06:59 Intake Total 300 Balance 300 Weight 110.4 kg General appearance: PRESENT: no acute distress, morbidly obese Head exam: PRESENT: atraumatic Eye exam: PRESENT: PERRLA Mouth exam: PRESENT: moist, tongue midline Respiratory exam: PRESENT: clear to auscultation [place]. ABSENT: rales, rhonchi, wheezes Cardiovascular exam: PRESENT: RRR. ABSENT: diastolic murmur, rubs, systolic murmur GI/Abdominal exam: PRESENT: normal bowel sounds, soft. ABSENT: distended, guarding, mass, organolmegaly, rebound, tenderness Rectal exam: PRESENT: deferred Extremities exam: PRESENT: full ROM. ABSENT: calf tenderness, clubbing, pedal edema Neurological exam: PRESENT: alert, awake, oriented to person, oriented to place, oriented to time, oriented to situation, CN II-XII grossly intact. ABSENT: motor sensory deficit Psychiatric exam: PRESENT: appropriate affect, normal mood. ABSENT: homicidal ideation, suicidal ideation Results Laboratory Results: 02/19/19 03:45 02/19/19 03:45 02/18/19 02/18/19 02/18/19 20:40 20:40 21:43 WBC 8.3 RBC 4.28 Hgb 12.3 Hct 36.5 MCV 85 MCH 28.8 MCHC 33.7 RDW 15.9 H Plt Count 201 Seg Neutrophils % 73.8 Lymphocytes % 16.4 Monocytes % 4.3 Eosinophils % 4.8 Basophils % 0.7 Absolute Neutrophils 6.1 Absolute Lymphocytes 1.4 Absolute Monocytes 0.4 Absolute Eosinophils 0.4 Absolute Basophils 0.1 Sodium Cancelled 143.7 Potassium Cancelled 3.9 Chloride Cancelled 111 H Carbon Dioxide Cancelled 26 Anion Gap Cancelled 7 BUN Cancelled 15 Creatinine Cancelled 1.06 Est GFR ( Amer) Cancelled > 60 Est GFR (Non-Af Amer) Cancelled 53 L Glucose Cancelled 124 H Calcium Cancelled 9.0 Magnesium 02/19/19 02/19/19 03:45 03:45 WBC 6.7 RBC 3.93 Hgb 11.4 L Hct 33.4 L MCV 85 MCH 28.9 MCHC 34.0 RDW 15.8 H Plt Count 170 Seg Neutrophils % Lymphocytes % Monocytes % Eosinophils % Basophils % Absolute Neutrophils Absolute Lymphocytes Absolute Monocytes Absolute Eosinophils Absolute Basophils Sodium 144.3 Potassium 4.1 Chloride 111 H Carbon Dioxide 27 Anion Gap 6 BUN 14 Creatinine 1.19 Est GFR ( Amer) 56 L Est GFR (Non-Af Amer) 47 L Glucose 109 Calcium 9.0 Magnesium 2.0 02/18/19 02/18/19 02/18/19 20:40 21:43 21:43 Creatine Kinase 122 CK-MB (CK-2) Troponin I Cancelled < 0.012 NT-Pro-B Natriuret Pep 02/18/19 02/18/19 02/19/19 21:43 21:43 03:45 Creatine Kinase 96 CK-MB (CK-2) 1.23 Troponin I Cancelled NT-Pro-B Natriuret Pep 327 02/19/19 02/19/19 02/19/19 03:45 10:05 10:05 Creatine Kinase 91 CK-MB (CK-2) 0.80 0.78 Troponin I < 0.012 < 0.012 NT-Pro-B Natriuret Pep Impressions: Chest X-Ray 02/18/19 20:55 IMPRESSION: No evidence of acute cardiopulmonary disease. Plan Discharge Plan: Patient is going to [facility]. Time Spent: Greater than 30 Minutes
--- NOTE | 2019-02-19 15:49 | EKG REPORT ---
SEVERITY:- ABNORMAL ECG - SINUS RHYTHM ATRIAL PREMATURE COMPLEX LEFT VENTRICULAR HYPERTROPHY NONSPECIFIC ST-T CHANGES- INFERO-LATERAL LEADS . : Confirmed by: Suman Stokes MD 19-Feb-2019 15:47:54
[2019-02-20] MEDS ORDERED: ENOXAPARIN SODIUM INJ 40 MG/0.4 ML DISP.SYRIN SUBCUT SCH (10:00)
== END 2019-02-19 17:00 | disposition short-term general hospital (02) ==
LOC: ER 19:57 → EH 02-19 → 5 02-19 01:30
PROVIDERS: ADMIT Emergency Medicine; ATTEND Emergency Medicine
DX: I25.110 Atherosclerotic heart disease of native coronary artery with unstable angina pectoris (principal); I10 Essential (primary) hypertension; E78.5 Hyperlipidemia, unspecified; E66.01 Morbid (severe) obesity due to excess calories; E11.9 Type 2 diabetes mellitus without complications; M19.90 Unspecified osteoarthritis, unspecified site; R94.31 Abnormal electrocardiogram [ECG] [EKG]; Z68.36 Body mass index [BMI] 36.0-36.9, adult; Z95.5 Presence of coronary angioplasty implant and graft; Z79.82 Long term (current) use of aspirin; Z79.02 Long term (current) use of antithrombotics/antiplatelets; Z79.52 Long term (current) use of systemic steroids; Z83.3 Family history of diabetes mellitus; Z82.61 Family history of arthritis; Z82.49 Family history of ischemic heart disease and other diseases of the circulatory system
CPT/HCPCS: 93005 ×2; 99285; 36415; 82553; 82962; 82550; 83735; 85025; 85027; 85610; 85730; 80048; 84484; 83036; 83880; 71045; 93010 ×2; G0378 ×2; J1815; J1652; J3490

== ENCOUNTER 2019-06-18 11:28 | Emergency (ER) | payer OTHER ==
--- NOTE | 2019-06-18 12:13 | ER Document Report ---
ED Medical Screen (RME) - General Chief Complaint: Knee Pain Stated Complaint: RIGHT KNEE PAIN Time Seen by Provider: 06/18/19 12:08 Notes: Patient is a 58-year-old female who presents emergency department with right knee pain. Her pain started 3 days ago. Patient has family history of gout. She has never been diagnosed with gout. Denies any injury. Patient is currently on Plavix. She states that she is unable to walk. Exam: Tender anterior right knee. I have greeted and performed a rapid initial assessment of this patient. A comprehensive ED assessment and evaluation of the patient, analysis of test results and completion of medical decision making process will be conducted by an additional ED providers. TRAVEL OUTSIDE OF THE [place] IN LAST 30 DAYS: No - Related Data Allergies/Adverse Reactions: No Known Allergies Allergy (Verified 06/18/19 12:05) Past Medical History - Past Medical History Cardiac Medical History: Reports: Hx Coronary Artery Disease, Hx Hypercholesterolemia, Hx Hypertension Denies: Hx Atrial Fibrillation, Hx Congestive Heart Failure, Hx DVT, Hx Heart Attack, Hx Peripheral Vascular Disease, Hx Pulmonary Embolism, Hx Heart Murmur Pulmonary Medical History: Denies: Hx Asthma, Hx COPD Neurological Medical History: Denies: Hx Seizures Endocrine Medical History: Reports: Hx Diabetes Mellitus Type 2. Denies: Hx Diabetes Mellitus Type 1, Hx Hyperthyroidism, Hx Hypothyroidism Renal/ Medical History: Denies: Hx Peritoneal Dialysis GI Medical History: Denies: Hx Cirrhosis, Hx Hepatitis Musculoskeltal Medical History: Reports Hx Arthritis, Denies Hx Gout Skin Medical History: Denies Hx Eczema, Denies Hx Psoriasis Infectious Medical History: Denies: Hx Hepatitis Past Surgical History: Reports: Hx Cardiac Catheterization, Hx Cardiac Surgery - November 2018, Hx Section, Hx Coronary Stent - X2 Physical Exam - Vital signs Vitals: Temp Pulse Resp BP Pulse Ox 98.0 F 63 18 152/78 H 99 06/18/19 11:43 06/18/19 11:43 06/18/19 11:43 06/18/19 11:43 06/18/19 11:43 Course - Vital Signs Vital signs: Temp Pulse Resp BP Pulse Ox 98.0 F 63 18 152/78 H 99 06/18/19 11:43 06/18/19 11:43 06/18/19 11:43 06/18/19 11:43 06/18/19 11:43
--- NOTE | 2019-06-18 12:47 | RADIOLOGY REPORT (SQ) ---
EXAM DESCRIPTION: KNEE RIGHT 4 VIEWS COMPLETED DATE/TIME: 06/18/2019 12:32 pm REASON FOR STUDY: knee pain COMPARISON: None. NUMBER OF VIEWS: Four views. TECHNIQUE: AP, lateral, and both oblique radiographic images acquired of the right knee. LIMITATIONS: None. FINDINGS: MINERALIZATION: Normal. BONES: No acute fracture or dislocation. No worrisome bone lesions. JOINT: No effusion. SOFT TISSUES: No soft tissue swelling. No radio-opaque foreign body. OTHER: No other significant finding. IMPRESSION: NEGATIVE STUDY OF THE RIGHT KNEE. NO RADIOGRAPHIC EVIDENCE OF ACUTE INJURY. TECHNICAL DOCUMENTATION: JOB ID: [id number]- All Rights Reserved Reading location - IP/workstation name: [email or web address]
[2019-06-18 13:07] LABS: ANION GAP 9 (5-19); BLOOD UREA NITROGEN 16 mg/dL (7-20); CALCIUM 9.3 mg/dL (8.4-10.2); CARBON DIOXIDE 32 mmol/L (22-30); CHLORIDE 104 mmol/L (98-107); POTASSIUM 3.6 mmol/L (3.6-5.0); URIC ACID 9.7 mg/dL (2.5-7.5)
[2019-06-18 13:12] LABS: GLUCOSE 66 mg/dL (75-110)
--- NOTE | 2019-06-18 13:30 | ER Document Report ---
ED Extremity Problem, Lower - General Chief Complaint: Knee Pain Stated Complaint: RIGHT KNEE PAIN Time Seen by Provider: 06/18/19 12:08 Primary Care Provider: FRANCOIS LYLES MD [ACTIVE PROVISIONAL STAFF] - Follow up in 1 week (for follow up) TRAVEL OUTSIDE OF THE [place] IN LAST 30 DAYS: No - HPI Notes: Patient is a 58-year-old female who presents emergency department with C/O right knee pain. Her pain started 3 days ago. Patient has family history of gout. She has never been diagnosed with gout. Denies any injury. Patient is currently on Plavix. She states that she has increased pain with ambulation. - Related Data Allergies/Adverse Reactions: No Known Allergies Allergy (Verified 06/18/19 12:05) Past Medical History - General Information source: Patient, Relative - Social History Smoking Status: Never Smoker Chew tobacco use (# tins/day): No Frequency of alcohol use: None Drug Abuse: None Family History: Arthritis, CAD, CVA, DM, Hyperlipidemia, Hypertension, Malignancy, Other - Gout. denies: COPD Patient has suicidal ideation: No Patient has homicidal ideation: No - Past Medical History Cardiac Medical History: Reports: Hx Coronary Artery Disease, Hx Hypercholesterolemia, Hx Hypertension Denies: Hx Atrial Fibrillation, Hx Congestive Heart Failure, Hx DVT, Hx Heart Attack, Hx Peripheral Vascular Disease, Hx Pulmonary Embolism, Hx Heart Murmur Pulmonary Medical History: Denies: Hx Asthma, Hx COPD Neurological Medical History: Denies: Hx Seizures Endocrine Medical History: Reports: Hx Diabetes Mellitus Type 2. Denies: Hx Diabetes Mellitus Type 1, Hx Hyperthyroidism, Hx Hypothyroidism Renal/ Medical History: Denies: Hx Peritoneal Dialysis GI Medical History: Denies: Hx Cirrhosis, Hx Hepatitis Musculoskeletal Medical History: Reports Hx Arthritis, Denies Hx Gout Skin Medical History: Denies Hx Eczema, Denies Hx Psoriasis Infectious Medical History: Denies: Hx Hepatitis Past Surgical History: Reports: Hx Cardiac Catheterization, Hx Cardiac Surgery - November 2018, Hx Section, Hx Coronary Stent - X2 Review of Systems - Review of Systems Constitutional: denies: Chills, Fever EENT: No symptoms reported Cardiovascular: denies: Chest pain, Palpitations, Heart racing, Orthopnea, Dyspnea, Syncope, Dizziness, Lightheaded Respiratory: denies: Cough, Short of breath Gastrointestinal: denies: Abdominal pain, Diarrhea, Nausea, Vomiting Musculoskeletal: See HPI, Joint pain, Joint swelling Skin: No symptoms reported Neurological/Psychological: No symptoms reported -: Yes All other systems reviewed and negative Physical Exam - Vital signs Vitals: Temp Pulse Resp BP Pulse Ox 98.0 F 63 18 152/78 H 99 06/18/19 11:43 06/18/19 11:43 06/18/19 11:43 06/18/19 11:43 06/18/19 11:43 Interpretation: Hypertensive - General General appearance: Appears well, Alert - HEENT Head: Normocephalic, Atraumatic Eyes: Normal Pupils: PERRL - Respiratory Respiratory status: No respiratory distress Chest status: Nontender Breath sounds: Normal Chest palpation: Normal - Cardiovascular Rhythm: Regular Heart sounds: Normal auscultation Murmur: No - Abdominal Inspection: Normal Distension: No distension Bowel sounds: Normal Tenderness: Nontender Organomegaly: No organomegaly - Extremities Knee: Tender - there is TTP and mild edema over the right knee joint. It is not erythematous or warm to the touch. Increased pain with passive flexion, but negative anterior drawer and valgus/varus stress testing. strength maintained with 5/5 strength against resistance in flexion and extension of bilateral lower extremity. no evidence of streaking lymphangitis. No calf pain, no palpable cords. pulse intact and equal. - Neurological Neuro grossly intact: Yes Cognition: Normal Orientation: AAOx4 [place] Coma Scale Eye Opening: Spontaneous [place] Coma Scale Verbal: Oriented [place] Coma Scale Motor: Obeys Commands [place] Coma Scale Total: 15 Speech: Normal Cranial nerves: Normal Motor strength normal: LUE, RUE, LLE, RLE Sensory: Normal - Psychological Associated symptoms: Normal affect, Normal mood - Skin Skin Temperature: Warm Skin Moisture: Dry Skin Color: Normal Course - Vital Signs Vital signs: Temp Pulse Resp BP Pulse Ox 97.9 F 69 18 145/78 H 99 06/18/19 13:34 06/18/19 13:34 06/18/19 13:34 06/18/19 13:34 06/18/19 13:34 Laboratory 06/18/19 12:17 Sodium 144.5 Potassium 3.6 Chloride 104 Carbon Dioxide 32 H Anion Gap 9 BUN 16 Creatinine 0.98 Est GFR ( Amer) > 60 Est GFR (MDRD) Non-Af 58 L Glucose 66 L Uric Acid 9.7 H Calcium 9.3 Knee X-Ray 06/18/19 12:11 IMPRESSION: NEGATIVE STUDY OF THE RIGHT KNEE. NO RADIOGRAPHIC EVIDENCE OF ACUTE INJURY. Impression: Right knee pain -- likely gouty in nature. Will start on pain control and have her follow with PCP. Noted blood gluose, patient was given [place] Juice. encouraged to return if worsening symptoms or any other concerns. - Laboratory Result Diagrams: 06/18/19 12:17 Laboratory results interpreted by me: 06/18/19 12:17 Carbon Dioxide 32 H Est GFR (MDRD) Non-Af 58 L Glucose 66 L Uric Acid 9.7 H - Diagnostic Test Radiology reviewed: Reports reviewed Discharge - Discharge Clinical Impression: Right knee pain, Elevated blood uric acid level, Gout Condition: Stable Disposition: HOME, SELF-CARE Instructions: Gout ([facility]), Gout Diet ([facility]) Additional Instructions: TAKE MEDICINES PRESCRIBED. FOLLOW UP WITH PRIMARY CARE PHYSICIAN. AVOID PURINE HEAVY FOODS SUCH BEEF, SHRIMP, AND ALCOHOL. Prescriptions: Hydrocodone/Acetaminophen [[place] 5-325 mg Tablet] 1 tab PO Q8H #9 tablet Referrals: FRANCOIS LYLES MD [ACTIVE PROVISIONAL STAFF] - Follow up in 1 week (for follow up)
[2019-06-18 13:35] VITALS: BP 145/78
== END 2019-06-18 13:35 | disposition home or self-care (01) ==
LOC: ER 11:28
DX: M25.561 Pain in right knee (principal); M10.9 Gout, unspecified; Z79.02 Long term (current) use of antithrombotics/antiplatelets; I25.10 Atherosclerotic heart disease of native coronary artery without angina pectoris; I10 Essential (primary) hypertension; E11.9 Type 2 diabetes mellitus without complications
CPT/HCPCS: 36415; 80048; 84550; 99283

== ENCOUNTER 2019-10-01 08:48 | Emergency (ER) | payer SELFPAY ==
--- NOTE | 2019-10-01 09:16 | ER Document Report ---
ED Medical Screen (RME) - General Chief Complaint: Flank Pain Stated Complaint: FLANK PAIN Time Seen by Provider: 10/01/19 09:13 Mode of Arrival: Ambulatory Information source: Patient Notes: 38-year-old female presents to ED for complaint of right flank pain. She states is been going on for about a week. She denies nausea or vomiting. Denies any urinary symptoms. She denies any fevers or chills. She does have tenderness to the right flank area. Lungs are clear to auscultation. She states she does not drink smoke or use any kind of illicit drugs. I have greeted and performed a rapid initial assessment of this patient. A comprehensive ED assessment and evaluation of the patient, analysis of test results and completion of medical decision making process will be conducted by an additional ED providers. TRAVEL OUTSIDE OF THE [place] IN LAST 30 DAYS: No - Related Data Allergies/Adverse Reactions: No Known Allergies Allergy (Verified 06/18/19 12:05) Past Medical History - Past Medical History Cardiac Medical History: Reports: Hx Coronary Artery Disease, Hx Hypercholesterolemia, Hx Hypertension Denies: Hx Atrial Fibrillation, Hx Congestive Heart Failure, Hx DVT, Hx Heart Attack, Hx Peripheral Vascular Disease, Hx Pulmonary Embolism, Hx Heart Murmur Pulmonary Medical History: Denies: Hx Asthma, Hx COPD Neurological Medical History: Denies: Hx Seizures Endocrine Medical History: Reports: Hx Diabetes Mellitus Type 2. Denies: Hx Diabetes Mellitus Type 1, Hx Hyperthyroidism, Hx Hypothyroidism Renal/ Medical History: Denies: Hx Peritoneal Dialysis GI Medical History: Denies: Hx Cirrhosis, Hx Hepatitis Musculoskeltal Medical History: Reports Hx Arthritis, Denies Hx Gout Skin Medical History: Denies Hx Eczema, Denies Hx Psoriasis Infectious Medical History: Denies: Hx Hepatitis Past Surgical History: Reports: Hx Cardiac Catheterization, Hx Cardiac Surgery - November 2018, Hx Section, Hx Coronary Stent - X2 Physical Exam - Vital signs Vitals: Temp Pulse Resp BP Pulse Ox 97.7 F 89 18 140/69 H 100 10/01/19 08:51 10/01/19 08:51 10/01/19 08:51 10/01/19 08:51 10/01/19 08:51 Course - Vital Signs Vital signs: Temp Pulse Resp BP Pulse Ox 97.7 F 89 18 140/69 H 100 10/01/19 08:51 10/01/19 08:51 10/01/19 08:51 10/01/19 08:51 10/01/19 08:51
[2019-10-01] MEDS ORDERED: HYDROCODONE/ACETAMINOPHEN 5-325 MG TABLET PO ONE (10:02)
[2019-10-01] MEDS ORDERED: IBUPROFEN 600 MG TABLET PO ONE (10:02)
[2019-10-01 10:06] LABS: ABSOLUTE EOSINOPHILS # (AUTO) 0.3 10^3/uL (0.0-0.6); ABSOLUTE LYMPHOCYTES (AUTO) 1.5 10^3/uL (0.5-4.7); ABSOLUTE MONOCYTES (AUTO) 0.3 10^3/uL (0.1-1.4); ABSOLUTE NEUT (AUTO) 3.6 10^3/uL (1.7-8.2); BASOPHILS % (AUTO) 0.5 % (0-2); EOSINOPHILS % (AUTO) 4.6 % (0-6); HEMATOCRIT 40.2 % (36.0-47.0); HEMOGLOBIN 13.4 g/dL (12.0-15.5); LYMPHOCYTES % (AUTO) 26.2 % (13-45); MEAN CORPUSCULAR HEMOGLOBIN 28.7 pg (27.0-33.4); MEAN CORPUSCULAR HGB CONC 33.4 g/dL (32.0-36.0); MEAN CORPUSCULAR VOLUME 86 fl (80-97); MONOCYTES % (AUTO) 4.9 % (3-13); PLATELET COUNT 204 10^3/uL (150-450); RED BLOOD COUNT 4.68 10^6/uL (3.72-5.28); RED CELL DISTRIBUTION WIDTH 14.7 % (11.5-14.0); SEGMENTED NEUTROPHILS % (AUTO) 63.8 % (42-78); TOTAL CELLS COUNTED % (AUTO) 100 %; WHITE BLOOD COUNT 5.7 10^3/uL (4.0-10.5)
--- NOTE | 2019-10-01 10:13 | ER Document Report ---
ED GI/ - General Chief Complaint: Flank Pain Stated Complaint: FLANK PAIN Time Seen by Provider: 10/01/19 09:13 Primary Care Provider: [facility] [Primary Care Provider] - Follow up as needed Mode of Arrival: Ambulatory Information source: Patient Notes: HPI: 58-year-old female who states around 1 week of some right flank pain. Intermittent. Worse with moving. No radiation down the legs or to the abdomen. No history of kidney stones. No nausea, vomiting, fevers, or dysuria. No other aggravating relieving factors. No weakness or numbness of the legs. ROS: See HPI All other review of systems reviewed and otherwise negative Reviewed vital signs and nursing note as charted by RN. PHYSICAL EXAM: CONSTITUTIONAL: Alert and oriented and responds appropriately to questions. Well-appearing; well-nourished HEAD: Normocephalic; atraumatic NECK: Supple without meningismus; non-tender; no cervical lymphadenopathy, no masses CARD: Regular rate and rhythm; no murmurs; symmetric distal pulses RESP: Normal chest excursion without splinting or tachypnea; breath sounds clear and equal bilaterally; no wheezes, no rhonchi, no rales ABD/GI: Normal bowel sounds; non-distended; soft, non-tender to deep palpation of all 4 quadrants of the abdomen BACK: The back appears normal and is non-tender to palpation; right-sided paraspinal muscular tenderness with no swelling or erythema. No midline tenderness or step-offs EXT: Normal ROM in all joints; non-tender to palpation; no edema SKIN: No acute lesions noted NEURO: CN 2-12 intact; 5/5 bilateral upper and lower extremity strength with sensation intact to light touch PSYCH: The patient's mood and manner are appropriate. Grooming and personal hygiene are appropriate. TRAVEL OUTSIDE OF THE [place] IN LAST 30 DAYS: No - Related Data Allergies/Adverse Reactions: No Known Allergies Allergy (Verified 10/01/19 09:18) Past Medical History - General Information source: Patient - Social History Smoking Status: Never Smoker Chew tobacco use (# tins/day): No Frequency of alcohol use: None Drug Abuse: None Family History: Arthritis, CAD, CVA, DM, Hyperlipidemia, Hypertension, Malignancy, Other - Gout. denies: COPD Patient has suicidal ideation: No Patient has homicidal ideation: No - Past Medical History Cardiac Medical History: Reports: Hx Coronary Artery Disease, Hx Hypercholesterolemia, Hx Hypertension Denies: Hx Atrial Fibrillation, Hx Congestive Heart Failure, Hx DVT, Hx Heart Attack, Hx Peripheral Vascular Disease, Hx Pulmonary Embolism, Hx Heart Murmur Pulmonary Medical History: Denies: Hx Asthma, Hx COPD Neurological Medical History: Denies: Hx Seizures Endocrine Medical History: Reports: Hx Diabetes Mellitus Type 2. Denies: Hx Diabetes Mellitus Type 1, Hx Hyperthyroidism, Hx Hypothyroidism Renal/ Medical History: Denies: Hx Peritoneal Dialysis GI Medical History: Denies: Hx Cirrhosis, Hx Hepatitis Musculoskeletal Medical History: Reports Hx Arthritis, Denies Hx Gout Skin Medical History: Denies Hx Eczema, Denies Hx Psoriasis Infectious Medical History: Denies: Hx Hepatitis Past Surgical History: Reports: Hx Cardiac Catheterization, Hx Cardiac Surgery - November 2018, Hx Section, Hx Coronary Stent - X2 Physical Exam - Vital signs Vitals: Temp Pulse Resp BP Pulse Ox 97.7 F 89 18 140/69 H 100 10/01/19 08:51 10/01/19 08:51 10/01/19 08:51 10/01/19 08:51 10/01/19 08:51 Course - Re-evaluation Re-evalutation: 10/01/19 10:12 Given the above history and physical, I do believe that the patient most likely has musculoskeletal back pain. No signs or symptoms of discitis, epidural abscess, or osteomyelitis of the spine. No radiation to the legs, abdomen, with no weakness or numbness of the legs. I do believe kidney stone to be unlikely as well. 10/01/19 10:43 Labs urine analysis and ultrasound as recorded. Patient had an irregular ultrasound previously. Given the possibility of a diabetic patient having an obstructing kidney stone with a possible UTI, renal colic CT has been ordered. 10/01/19 11:33 CT imaging as recorded. No stones in the ureters. I will treat the patient for urinary tract infection with some pain medications with strict return precautions and follow-up with the primary care provider. Patient's pain is much improved. - Vital Signs Vital signs: Temp Pulse Resp BP Pulse Ox 97.7 F 89 18 140/69 H 100 10/01/19 08:51 10/01/19 08:51 10/01/19 08:51 10/01/19 08:51 10/01/19 08:51 - Laboratory Result Diagrams: 10/01/19 09:46 10/01/19 09:46 Laboratory results interpreted by me: 10/01/19 10/01/19 10/01/19 09:46 09:46 09:46 RDW 14.7 H Est GFR ( Amer) 59 L Est GFR (MDRD) Non-Af 49 L Glucose 286 H Urine Glucose (UA) 50 H Leukocyte Esterase Rfl TRACE H Discharge - Discharge Clinical Impression: Right flank pain UTI (urinary tract infection) Qualifiers: Urinary tract infection type: site unspecified Hematuria presence: without hematuria Qualified Code(s): N39.0 - Urinary tract infection, site not specified Condition: Good Disposition: HOME, SELF-CARE Additional Instructions: Come back immediately for any increased pain, change in location or quality of pain, fevers or vomiting, or any other acute problems. Please make sure that you follow-up with your primary care physician with possibly a referral to a urologist as we have discussed. Prescriptions: Cephalexin Monohydrate [Keflex 500 mg Capsule] 500 mg PO Q6H 7 Days #21 capsule Hydrocodone/Acetaminophen [[employer] 5-325 mg Tablet] 1 tab PO Q6H #12 tablet Ondansetron [Zofran Odt 4 mg Tablet] 1 tab PO Q6H #15 tab.rapdis [facility]: [facility] [Primary [facility] Provider] - Follow up as needed
[2019-10-01 10:15] LABS: APPEARANCE,URINE SLIGHTLY-CLOUDY; BILIRUBIN,URINE NEGATIVE (NEGATIVE); COLOR,URINE YELLOW; GLUCOSE, URINE 50 mg/dL (NEGATIVE); KETONES,URINE NEGATIVE (NEGATIVE); PROTEIN,URINE NEGATIVE (NEGATIVE); URINE SPECIFIC GRAVITY 1.012; UROBILINOGEN,URINE NEGATIVE mg/dL (<2.0)
--- NOTE | 2019-10-01 10:19 | RADIOLOGY REPORT (SQ) ---
EXAM DESCRIPTION: U/S RETROPERITON (RENAL/AORTA) COMPLETED DATE/TIME: 10/01/2019 10:08 am REASON FOR STUDY: right flank pain COMPARISON: None. TECHNIQUE: Dynamic and static grayscale images acquired of the kidneys and bladder and recorded on P ACS. Additional selected color Doppler and spectral images recorded. LIMITATIONS: None. FINDINGS: RIGHT KIDNEY: The right kidney measures 12.0 cm length. Normal echogenicity. No solid or suspicious masses. The right renal pelvis is slightly prominent but most likely represents a ex trarenal pelvis. There is no calyx dilatation. Small echogenic foci consistent with nonobstructing stones. LEFT KIDNEY: The left kidney measures 12.1 cm in length. Normal echogenicity. No solid or suspic ious masses. Extrarenal pelvis is again noted this is demonstrated on prior CT chest done 10/16/2018. No calcifications. BLADDER: No masses. OTHER FINDINGS: No other significant finding. IMPRESSION: 1. Small nonobstructing right renal calculi. 2. Mild prominence of the right and left renal pelvis. Most likely secondary to extrarenal pelvis. This was demonstrated on prior CT chest dated 10/26/2018. No evidence of hydronephrosis. TECHNICAL DOCUMENTATION: JOB ID: [id number] [employer]- All Rights Reserved Reading location - IP/workstation name: [email or web address]
[2019-10-01 10:20] LABS: ALBUMIN 4.1 g/dL (3.5-5.0); ALKALINE PHOSPHATASE 93 U/L (38-126); ANION GAP 11 (5-19); ASPARTATE AMINO TRANSFERASE 21 U/L (14-36); BILIRUBIN,DIRECT 0.2 mg/dL (0.0-0.4); BILIRUBIN,TOTAL 0.4 mg/dL (0.2-1.3); BLOOD UREA NITROGEN 20 mg/dL (7-20); CALCIUM 9.4 mg/dL (8.4-10.2); CARBON DIOXIDE 30 mmol/L (22-30); CHLORIDE 101 mmol/L (98-107); GLUCOSE 286 mg/dL (75-110); POTASSIUM 4.1 mmol/L (3.6-5.0); TOTAL PROTEIN 7.5 g/dL (6.3-8.2)
[2019-10-01] MEDS ORDERED: CEPHALEXIN 500 MG CAPSULE PO ONE (10:43)
--- NOTE | 2019-10-01 11:12 | RADIOLOGY REPORT (SQ) ---
EXAM DESCRIPTION: CT ABD/PELVIS NO ORAL OR IV COMPLETED DATE/TIME: 10/01/2019 10:57 am REASON FOR STUDY: 58; right flank pain, possible UTI, diabetic COMPARISON: None. TECHNIQUE: CT scan of the abdomen and pelvis performed without intravenous or oral contrast. Images reviewed with lung, soft tissue, and bone windows. Reconstructed coronal and sagittal MPR images revi ewed. All images stored on PACS. All CT scanners at this facility use dose modulation, iterative reconstruction, and/or weight based d osing when appropriate to reduce radiation dose to as low as reasonably achievable (ALARA). [facility]: Dose Right [facility]: CareDose [facility]: Dose Right [facility]: Teradose 4D [facility]: Smart [facility] RADIATION DOSE: CT Rad equipment meets quality standard of care and radiation dose reduction techniq ues were employed. CTDIvol: 16.8 mGy. DLP: 906 mGy-cm.mGy. LIMITATIONS: None. FINDINGS: LOWER CHEST: No significant findings. No nodules or infiltrates. NON-CONTRASTED LIVER, SPLEEN, ADRENALS: Evaluation limited by lack of IV contrast. No identified sign ificant masses. PANCREAS: No masses. No peripancreatic inflammatory changes. GALLBLADDER: No identified stones by CT criteria. No inflammatory changes to suggest cholecystitis. RIGHT KIDNEY AND URETER: No suspicious masses. Assessment limited by lack of IV contrast. There is a 4.1 mm nonobstructing right renal stone in the upper pole. No hydronephrosis or hydroureter. LEFT KIDNEY AND URETER: No suspicious masses. Assessment limited by lack of IV contrast. There is a 3.8 mm nonobstructing stone in the upper pole the left kidney. No hydronephrosis or hydroureter. AORTA AND RETROPERITONEUM: No aneurysm. No retroperitoneal masses or adenopathy. BOWEL AND PERITONEAL CAVITY: No obvious masses or inflammatory changes. No free fluid. APPENDIX: Normal. PELVIS, BLADDER, AND ABDOMINAL WALL:No abnormal masses. No free fluid. Bladder normal. BONES: No significant findings. OTHER: No other significant finding. IMPRESSION: Small nonobstructing bilateral renal calculi. No hydronephrosis. No ureteral stones. COMMENT: Quality ID # [id number]: Final reports with documentation of one or more dose reduction techniques (e.g., Automated exposure control, adjustment of the mA and/or kV according to patient size, use of iterative reconstruction technique) TECHNICAL DOCUMENTATION: JOB ID: [id number] [employer]- All Rights Reserved Reading location - IP/workstation name: [email or web address]
[2019-10-01 13:09] VITALS: BP 116/62
== END 2019-10-01 13:05 | disposition home or self-care (01) ==
LOC: ER 08:48
DX: N39.0 Urinary tract infection, site not specified (principal); R10.9 Unspecified abdominal pain; I25.10 Atherosclerotic heart disease of native coronary artery without angina pectoris; I10 Essential (primary) hypertension
CPT/HCPCS: 36415; 74176; 76770; 80053; 81001; 85025; 87086; 99284

== ENCOUNTER 2020-03-27 11:14 | Emergency (ER) | payer SELFPAY ==
[2020-03-27] MEDS ORDERED: METHOCARBAMOL 750 MG TABLET PO ONE (12:53)
[2020-03-27] MEDS ORDERED: LIDOCAINE 5% (700 MG) TRANSDERMAL ADH..PATCH TP ONE (12:54)
--- NOTE | 2020-03-27 12:55 | ER Document Report ---
HPI - HPI Time Seen by Provider: 03/27/20 12:08 Pain Level: 4 Context: Patient is 59-year-old female who presents to the emergency department with a chief complaint of back pain that starts on her right lower back and radiates down her right leg. Patient states that she was helping take care of her mother and went to go lift her up and felt pain in her lower back. She also states that she has had a cough for the past week. Denies any fever, shortness of breath, or difficulty breathing. - ROS Systems Reviewed and Negative: Yes All other systems reviewed and negative - CONSTITUTIONAL Constitutional: DENIES: Fever, Chills - EENT EENT: DENIES: Sore Throat, Ear Pain, Nasal Drainage-Clear, Nasal Drainage- Purulent, Congestion, Eye problems - NEURO Neurology: DENIES: Headache, Weakness, Vision blurred - CARDIOVASCULAR Cardiovascular: DENIES: Chest pain - RESPIRATORY Respiratory: REPORTS: Coughing. DENIES: Trouble Breathing - GASTROINTESTINAL Gastrointestinal: DENIES: Abdominal Pain, Nausea, Patient vomiting - REPRODUCTIVE Reproductive: DENIES: : - MUSCULOSKELETAL Musculoskeletal: REPORTS: Extremity pain - right let, Back Pain - right low. DENIES: Swelling - DERM Skin Color: Normal Skin Problems: None Past Medical History - Social History Smoking Status: Never Smoker Family History: Arthritis, CAD, CVA, DM, Hyperlipidemia, Hypertension, Malignancy, Other - Gout. denies: COPD Patient has homicidal ideation: No - Past Medical History Cardiac Medical History: Reports: Hx Coronary Artery Disease, Hx Hypercholesterolemia, Hx Hypertension Denies: Hx Atrial Fibrillation, Hx Congestive Heart Failure, Hx DVT, Hx Heart Attack, Hx Peripheral Vascular Disease, Hx Pulmonary Embolism, Hx Heart Murmur Pulmonary Medical History: Denies: Hx Asthma, Hx COPD Neurological Medical History: Denies: Hx Seizures Endocrine Medical History: Reports: Hx Diabetes Mellitus Type 2. Denies: Hx Diabetes Mellitus Type 1, Hx Hyperthyroidism, Hx Hypothyroidism Renal/ Medical History: Denies: Hx Peritoneal Dialysis GI Medical History: Denies: Hx Cirrhosis, Hx Hepatitis Musculoskeletal Medical History: Reports Hx Arthritis, Denies Hx Gout Skin Medical History: Denies Hx Eczema, Denies Hx Psoriasis Infectious Medical History: Denies: Hx Hepatitis Past Surgical History: Reports: Hx Cardiac Catheterization, Hx Cardiac Surgery - Stent, Hx Section, Hx Coronary Stent - X2 Vertical Provider Document - CONSTITUTIONAL Agree With Documented VS: Yes Exam Limitations: No Limitations General Appearance: No Apparent Distress - INFECTION CONTROL TRAVEL OUTSIDE OF THE [place] IN LAST 30 DAYS: No - HEENT HEENT: Atraumatic, Normocephalic, PERRLA, Pharyngeal Tenderness. negative: Conjuctival Injection, Pharyngeal Exudate, Pharyngeal Erythema Notes: Edema and erythema noted to nasal mucosa. Postnasal drip noted back of throat. - NECK Neck: Normal Inspection, Supple. negative: Lymphadenopathy-Left, Lymphadenopathy-Right - RESPIRATORY Respiratory: Breath Sounds Normal, No Respiratory Distress - CARDIOVASCULAR Cardiovascular: Regular Rate, Regular Rhythm Pulses: Normal: Radial - GI/ABDOMEN Gastrointestinal: Abdomen Soft, Abdomen Non-Tender - BACK Back: negative: CVA Tenderness-Right, CVA Tenderness-Left - MUSCULOSKELETAL/EXTREMETIES Musculoskeletal/Extremeties: FROM, Tender - Right low back, No Edema - NEURO Level of Consciousness: Awake, Alert, Appropriate Motor/Sensory: No Motor Deficit, No Sensory Deficit Deep Tendon Reflexes: 2+ - DERM Integumentary: Warm, Dry, No Rash Course - Re-evaluation Re-evalutation: 03/27/20 Chest x-ray is unremarkable. No pneumonia noted. Based off the patient's physical exam, the patient's cough is due to postnasal drip. Also the patient on Flonase. We will start her on Robaxin. Instructed her to not take Flexeril while taking Robaxin. She is in agreement with this plan. I will suspicion for urinary tract infection or renal calculi. I do not suspect cauda equina syndrome, epidural abscess, or any life-threatening etiology at this time. Follow-up precautions were given. Verbal discharge instructions were given to the patient. They verbalized understanding. They are stable for discharge. - Vital Signs Vital signs: Temp Pulse Resp BP Pulse Ox 98.9 F 71 16 143/79 H 100 03/27/20 12:37 03/27/20 12:37 03/27/20 12:37 03/27/20 12:37 03/27/20 12:37 Discharge - Discharge Clinical Impression: Cough Back pain Qualifiers: Back pain location: low back pain Chronicity: acute Back pain laterality: right Sciatica presence: with sciatica Sciatica laterality: sciatica of right side Qualified Code(s): M54.41 - Lumbago with sciatica, right side Condition: Stable Disposition: HOME, SELF-CARE Instructions: Ice Packs ([facility]), Low Back Pain ([facility]), Muscle Strain ([facility]), Warm Packs ([facility]) Additional Instructions: You were seen today in the emergency department for back pain and a cough. Your chest x-ray is normal. Your cough is most likely due to postnasal drip. You are being started on Flonase. Use this as directed. Follow-up with primary care provider. Your back pain is due to a muscle strain. You can take methocarbamol to help with your symptoms. Prescriptions: Fluticasone Propionate [Flonase Nasal [place] 50 Mcg/[place] 16 gm] 2 sprays NASL DAILY #1 inhaler Methocarbamol [Robaxin 500 mg Tablet] 1,000 mg PO BID PRN #30 tablet PRN Reason: Referrals: [facility] [Provider Group] - Follow up in 3-5 days
--- NOTE | 2020-03-27 13:36 | RADIOLOGY REPORT (SQ) ---
EXAM DESCRIPTION: CHEST SINGLE VIEW IMAGES COMPLETED DATE/TIME: 03/27/2020 1:20 pm REASON FOR STUDY: cough x1 week COMPARISON: 09/20/2018 EXAM PARAMETERS: NUMBER OF VIEWS: One view. TECHNIQUE: Single frontal radiographic view of the chest acquired. RADIATION DOSE: NA LIMITATIONS: None. FINDINGS: LUNGS AND PLEURA: No opacities, masses or pneumothorax. No pleural effusion. MEDIASTINUM AND HILAR STRUCTURES: No masses. Contour normal. HEART AND VASCULAR STRUCTURES: Heart normal in size. Normal vasculature. BONES: No acute findings. HARDWARE: None in the chest. OTHER: No other significant finding. IMPRESSION: NO ACUTE RADIOGRAPHIC FINDING IN THE CHEST. TECHNICAL DOCUMENTATION: JOB ID: [id number] [employer]- All Rights Reserved Reading location - IP/workstation name: [email or web address]
[2020-03-27 15:30] VITALS: BP 127/78
== END 2020-03-27 15:15 | disposition home or self-care (01) ==
LOC: ER 11:14
DX: M54.41 Lumbago with sciatica, right side (principal); X50.0XXA Overexertion from strenuous movement or load, initial encounter; Y93.F2 Activity, caregiving, lifting; R09.82 Postnasal drip; R05 Cough; I25.10 Atherosclerotic heart disease of native coronary artery without angina pectoris; I10 Essential (primary) hypertension; E11.9 Type 2 diabetes mellitus without complications; Z95.5 Presence of coronary angioplasty implant and graft
CPT/HCPCS: 99283; 71045; J3490